=== PATIENT | male | born 1940 | race Caucasian/White ===

== ENCOUNTER 2017-02-04 05:17 | Emergency (ER) | payer MEDICARE, OTHER ==
[2017-02-04] MEDS ORDERED: Phenergan 25 MG INJ IV ONE (05:39)
[2017-02-04] MEDS ORDERED: Sodium Chloride 0.9% 1000 ML 1,000 ML IV SCH (05:45)
[2017-02-04] MEDS ORDERED: Phenergan 25 MG INJ ONE (05:46)
[2017-02-04] MEDS ORDERED: Sodium Chloride 0.9% 1000 ML 1,000 ML ONE (05:46)
--- NOTE | 2017-02-04 05:48 | ERPHSYRPT ---
- History of Present Illness Time Seen by Provider: 02/04/17 05:30 Source: patient Exam Limitations: no limitations Patient Subjective Stated Complaint: patirnt states at 0430 this morning he was lying in bed and began feeling dizzy. pt states he also became nauseated with the dizziness. denies any chest pain or headache. Triage Nursing Assessment: pt pink, warm, dry. pt able to transfer from wheelchair to Er cot without difficulty. pupils perrl. Physician History: ABOUT 90 MINUTES AGO PT GOT UP TO GO TO THE BATHROOM AND BECAME DIZZY(SPINNING) WITH NAUSEA. PT ALSO C/O RIGHT SIDED THROAT PAIN YESTERDAY ONLY. CHEST PAIN, SHORTNESS OF AIR, VOMITING, ABDOMINAL PAIN, FEVER ALL DENIED. Allergies/Adverse Reactions: No Known Drug Allergies Allergy (Verified 06/10/16 22:49) Home Medications: Aspirin EC 81 mg [Ecotrin 81 mg] 81 mg PO DAILY 06/27/13 [History] Sacubitril/Valsartan [Entresto 24 mg-26 mg Tablet] 24 - 26 tab PO BID 06/11/16 [ History] Amiodarone HCl 200 mg PO DAILY 02/04/17 [History] Atorvastatin Calcium 80 mg PO 02/04/17 [History] Carvedilol 12.5 mg [Coreg 12.5 mg] 12.5 mg PO BID 02/04/17 [History] Clopidogrel Bisulfate 75 mg [PLAVIX 75 MG Tablet] 75 mg PO DAILY 02/04/17 [History] Furosemide 20 mg [Lasix 20 mg] 20 mg PO BIDPRN PRN 02/04/17 [History] Spironolactone 25 mg PO DAILY 02/04/17 [History] Hx Tetanus, Diphtheria Vaccination/Date Given: Yes (up to date) Hx Influenza Vaccination/Date Given: No Hx Pneumococcal Vaccination/Date Given: No Immunizations Up to Date: Yes - Review of Systems Constitutional: No Fever Ears, Nose, & Throat: Throat Pain Respiratory: No Dyspnea Cardiac: No Chest Pain Abdominal/Gastrointestinal: Nausea, No Abdominal Pain, No Vomiting Neurological: Dizziness, Vertigo, No Headache All Other Systems: Reviewed and Negative - Past Medical History Pertinent Past Medical History: Yes Neurological History: No Pertinent History ENT History: No Pertinent History Cardiac History: Coronary Artery Disease, Hypertension Respiratory History: No Pertinent History Endocrine Medical History: No Pertinent History Musculoskeletal History: No Pertinent History GI Medical History: No Pertinent History History: No Pertinent History Psycho-Social History: No Pertinent History Male Reproductive Disorders: No Pertinent History - Past Surgical History Past Surgical History: No Neuro Surgical History: No Pertinent History Cardiac: Cardiac Catheterization, Cardiac Stent Respiratory: No Pertinent History Gastrointestinal: No Pertinent History Genitourinary: No Pertinent History Musculoskeletal: No Pertinent History Male Surgical History: No Pertinent History Other Surgical History: stents times 4 - Social History Smoking Status: Never smoker Exposure to second hand smoke: No Drug Use: none Patient Lives Alone: No - Nursing Vital Signs Nursing Vital Signs: Initial Vital Signs Temperature 97.5 F 02/04/17 05:23 Pulse Rate 55 L 02/04/17 05:23 Respiratory Rate 18 02/04/17 05:23 Blood Pressure 124/79 02/04/17 05:23 O2 Sat by Pulse Oximetry 94 L 02/04/17 05:23 Pain Scale Pain Intensity 0 - Physical Exam General Appearance: alert Eye Exam: PERRL/EOMI, eyes nml inspection Ears, Nose, Throat Exam: TMs normal, pharynx normal, moist mucous membranes Neck Exam: normal inspection, full range of motion, No carotid bruit Respiratory Exam: normal breath sounds, lungs clear Cardiovascular Exam: normal heart sounds Gastrointestinal/Abdomen Exam: soft, normal bowel sounds Back Exam: normal range of motion Extremity Exam: normal inspection, normal range of motion, No pedal edema Neurologic Exam: alert, cooperative, sensation nml, No motor deficits Skin Exam: warm, dry SpO2 Interpretation: normal SpO2: 94 Oxygen Delivery: Room Air - Course Nursing assessment & vital signs reviewed: Yes EKG Interpreted by Me: RATE (54), Sinus Donato, NORMAL AXIS, NORMAL INTERVALS - Radiology Exams Chest X-ray Interpretation: Interpreted by me, No Pneumonia - CT Exams Head CT Interpretation: Tele-radiologist Report (NO EVIDENCE OF ACUTE INTRACRANIAL ABNORMALITY. NO EVIDENCE OF ACUTE INFARCTION, HEMORRHAGE OR MASS. ATROPHY AND MILD MICROVASCULAR DISEASE.) Ordered Tests: Active Orders 24 hr Category Date Time Status Machinery Engineer STAT Care 02/04/17 05:39 Active Clean Catch Urine Specimen STAT Care 02/04/17 05:39 Active EKG-ER Only STAT Care 02/04/17 05:39 Active IV Insertion STAT Care 02/04/17 05:39 Active CHEST 1 VIEW (PORTABLE) Stat Exams 02/04/17 05:39 Taken HEAD WITHOUT CONTRAST [CT] Stat Exams 02/04/17 05:40 Taken AMYLASE Stat Lab 02/04/17 06:00 Completed CBC W DIFF Stat Lab 02/04/17 06:00 Completed CMP Stat Lab 02/04/17 06:00 Completed LIPASE Stat Lab 02/04/17 06:00 Completed MAGNESIUM Stat Lab 02/04/17 06:00 Completed TROPONIN Q3H Lab 02/04/17 06:00 Completed TROPONIN Q3H Lab 02/04/17 08:45 Ordered TROPONIN Q3H Lab 02/04/17 11:45 Ordered TROPONIN Q3H Lab 02/04/17 14:45 Ordered TROPONIN Q3H Lab 02/04/17 17:45 Ordered UA W/RFX UR CULTURE Stat Lab 02/04/17 05:39 Ordered Medication Summary Generic Name Dose Route Start Last Admin Trade Name Freq PRN Reason Stop Dose Admin Sodium Chloride 1,000 mls @ 100 mls/hr 02/04/17 05:45 02/04/17 05:48 Sodium Chloride 0.9% 1000 Ml IV 03/06/17 05:44 100 mls/hr .Q10H LEMUEL Administration Magnesium Oxide 400 mg 02/04/17 07:00 Mag-Ox 400 PO 03/06/17 06:59 BID LEMUEL Discontinued Medications Generic Name Dose Route Start Last Admin Trade Name Freq PRN Reason Stop Dose Admin Promethazine HCl 12.5 mg 02/04/17 05:39 02/04/17 05:48 Phenergan 25 Mg Inj IV 02/04/17 05:40 12.5 mg STAT ONE Administration Promethazine HCl Confirm 02/04/17 05:46 Phenergan 25 Mg Inj Administered 02/04/17 05:47 Dose 25 mg .ROUTE .STK-MED ONE Lab/Rad Data: Laboratory Result Diagrams 02/04/17 06:00 02/04/17 06:00 Laboratory Results 02/04/17 02/04/17 02/04/17 Range/Units 06:00 06:00 06:00 WBC 5.8 (4.0-10.5) K/mm3 RBC 4.54 (4.1-5.6) M/mm3 Hgb 13.8 (12.5-18.0) gm/dl Hct 42.0 (42-50) % MCV 92.5 (78-100) fl MCH 30.4 (26-32) pg MCHC 32.9 (32-36) g/dl RDW 13.5 (11.5-14.0) % Plt Count 198 (150-450) K/mm3 MPV 10.0 H (6-9.5) fl Gran % 59.5 (36.0-66.0) % Lymphocytes % 26.0 (24.0-44.0) % Monocytes % 11.3 (0.0-12.0) % Eosinophils % 2.9 (0.00-5.0) % Basophils % 0.3 (0.0-0.4) % Basophils # 0.02 (0-0.4) Sodium 138 (136-145) mEq/L Potassium 3.7 (3.5-5.1) mEq/L Chloride 102 (98-107) mEq/L Carbon Dioxide 24.6 (21-32) mEq/L Anion Gap 15.5 H (5-15) MEQ/L BUN 14 (9-20) mg/dL Creatinine 0.92 (0.55-1.30) mg/dl Estimated GFR > 60 ML/MIN Glucose 126 H (70-110) MG/DL Calcium 9.0 (8.5-10.1) mg/dL Magnesium 1.6 L (1.8-2.4) mg/dL Total Bilirubin 0.60 (0.2-1.0) mg/dL AST 12 L (15-37) U/L ALT 21 (12-78) U/L Alkaline Phosphatase 58 (46-116) U/L Troponin I < 0.017 (0.000-0.056) ng/ml Serum Total Protein 6.7 (6.4-8.2) gm/dL Albumin 3.6 (3.4-5.0) g/dL Amylase 32 (25-115) U/L Lipase 80 (73-393) U/L - Departure Time of Disposition: 06:53 Departure Disposition: Home Clinical Impression: DIZZINESS Condition: Stable Critical Care Time: No Referrals: ALEX CORTEZ [Primary Care Provider] - Instructions: Vertigo Additional Instructions: FOLLOW UP WITH PRIVATE DOCTOR TOMORROW. Prescriptions: Meclizine HCl 25 mg [Antivert 25 mg] 25 mg PO Q8H PRN PRN #30 tablet PRN Reason: Dizziness
[2017-02-04 06:19] LABS: BASOPHIL % 0.3 % (0.0-0.4); Eosinophil % 2.9 % (0.00-5.0); Granulocytes % 59.5 % (36.0-66.0); Mean Cell Volume 92.5 fl (78-100); Mean Corpuscular Hemoglobin 30.4 pg (26-32); Monocytes % 11.3 % (0.0-12.0); Platelet Count 198 K/mm3 (150-450); Red Blood Count 4.54 M/mm3 (4.1-5.6); Red Cell Distribution Width 13.5 % (11.5-14.0); White Blood Count 5.8 K/mm3 (4.0-10.5)
[2017-02-04 06:25] LABS: ALBUMIN 3.6 g/dL (3.4-5.0); ALKALINE PHOSPHATASE 58 U/L (46-116); ANION GAP 15.5 MEQ/L (5-15); BLOOD UREA NITROGEN 14 mg/dL (9-20); CHLORIDE 102 mEq/L (98-107); Carbon Dioxide 24.6 mEq/L (21-32); Glucose 126 MG/DL (70-110); LIPASE 80 U/L (73-393); MAGNESIUM 1.6 mg/dL (1.8-2.4); Potassium 3.7 mEq/L (3.5-5.1); SGOT/AST 12 U/L (15-37); SGPT/ALT 21 U/L (12-78); SODIUM 138 mEq/L (136-145); Total Protein 6.7 gm/dL (6.4-8.2)
[2017-02-04 06:54] VITALS: O2SAT 94
[2017-02-04] MEDS ORDERED: MAG-OX 400 PO SCH (07:00)
[2017-02-04] MEDS ORDERED: MAG-OX 400 ONE (07:08)
[2017-02-04 07:53] VITALS: BP 128/64; PULSE 84
--- NOTE | 2017-02-04 16:12 | XRAY ---
Exam: CT of the head without IV contrast fromd 02/04/2017. Comparison: None. Indication: Dizziness, nausea. Technique: Non-IV contrast axial images were obtained through the brain. Reconstructed coronal and sagittal images were created and reviewed. Findings: The lateral and third ventricles as well as the cortical sulci and sylvian fissures are mildly prominent suggesting some mild cerebral volume loss/atrophy. The patient's head is tilted in the CT gantry. I see no evidence of acute intracranial bleed or abnormal extra-axial fluid collection. No focal mass effect or definite midline shift is seen. There is some mild subtle peripheral subcortical white matter changes, likely due to chronic microvascular disease. No evidence of acute territorial infarction is seen. The calvarium of the skull appears intact. Scant scattered mucosal thickening is seen within the maxillary sinuses, ethmoid sinuses, right side of the sphenoid sinus, and inferior portion of the frontal sinuses. No paranasal sinus air-fluid levels are seen. The mastoid air cells appear unremarkable. Impression: 1. No acute intracranial bleed, evidence of acute territorial infarction, gross mass, or other acute intracranial abnormality is seen. 2. Mild generalized atrophy and chronic small vessel ischemic disease.
--- NOTE | 2017-02-04 16:16 | XRAY ---
Exam: AP portable chest film from 0555 hours on 02/04/2017. Comparison: AP portable chest film from 06/10/2016. Indication: Dizziness, nausea, prior stents 3 years ago. Findings: The film was obtained in a mildly lordotic projection. Visualization of the left lung base is less than optimal, probably due to the patient's position. The transverse heart size appears within normal limits. No central vascular congestion is seen. The lungs appear grossly clear. No pneumothorax or pleural fluid is seen. No acute osseous process is seen. EKG leads are seen in place. Impression: 1. Mildly lordotic portable chest radiograph revealing no acute cardiopulmonary disease. The findings are unchanged from 06/10/2016.
== END 2017-02-04 07:52 | disposition home or self-care (01) ==
LOC: ED 05:17
DX: R42 Dizziness and giddiness (principal); R11.0 Nausea; I10 Essential (primary) hypertension; I25.10 Atherosclerotic heart disease of native coronary artery without angina pectoris
CPT/HCPCS: 36000; 36415; 70450; 71010; 80053; 82150; 83690; 83735; 84484; 85025; 93005; 93041; 96360; 96374; 99284; J2550; A9270-GY

== ENCOUNTER 2020-03-24 08:18 | Inpatient (IN) | payer MEDICARE, OTHER ==
[2020-03-24] MEDS ORDERED: Zofran 4 MG/2 ML VIAL IV ONE (08:47)
[2020-03-24] MEDS ORDERED: SUBLIMAZE 100 MCG/2 ML IV ONE (08:47)
[2020-03-24 08:57] LABS: Absolute Neutrophil Ct (ANC) 10.51 (1.4-6.9); BASOPHIL % 0.2 % (0.0-0.4); Basophil (Absolute #) 0.02 (0-0.4); Eosinophil % 0.8 % (0.00-5.0); Eosinophil (Absolute #) 0.11 (0-0.5); Hematocrit 45.9 % (42-50); Hemoglobin 15.3 gm/dl (12.5-18.0); Lymphocytes % 12.2 % (24.0-44.0); Mean Cell Volume 93.3 fl (78-100); Mean Corpuscular Hemoglobin 31.1 pg (26-32); Mean Corpuscular Hgb Concent. 33.3 g/dl (32-36); Mean Platelet Volume 9.4 fl (7.5-11.0); Monocyte (Absolute #) 0.86 (0.0-1.3); Monocytes % 6.6 % (0.0-12.0); Neutrophil % 80.2 % (36.0-66.0); Platelet Count 241 K/mm3 (150-450); Red Blood Count 4.92 M/mm3 (4.1-5.6); Red Cell Distribution Width 13.3 % (11.5-14.0); White Blood Count 13.1 K/mm3 (4.0-10.5)
[2020-03-24] MEDS ORDERED: SUBLIMAZE 100 MCG/2 ML ONE (08:57)
[2020-03-24] MEDS ORDERED: Zofran 4 MG/2 ML VIAL ONE (08:57)
--- NOTE | 2020-03-24 09:08 | ERPHSYRPT ---
- History of Present Illness Historian: patient Exam Limitations: no limitations Patient Subjective Stated Complaint: Pt stated that around 1900 last night he began having abdominal pain going straight down in a medial line Triage Nursing Assessment: Pt brought to the ER by his , vitals wnl, pain with palpatation to the upper, middle, and lower medial abdomen, pulses normal, normal heart sounds heard, rates pain 8/10, skin n/w/d, denies any issues in past like this Physician History: 79 yo wm w generalized avbdominal pain x 13 hours. Pain is 5/10 but has been 9/10 at max. It is sharp and nothing makes it better or worse. Pain does occ radiate to back. He denies N/V/D/melena/hematochezia/dysuria/hematuria/fever/chest pain. Timing/Duration: other (13hrs) Activities at Onset: rest Quality: sharpness Abdominal Pain Onset Location: generalized abdomen Pain Radiation: back Severity of Pain-Max: severe Severity of Pain-Current: severe Modifying Factors: Improves With: nothing Associated Symptoms: back, No chest pain, No diaphoresis, No diarrhea, No fever/chills, No fatigue, No headache, No heartburn, No loss of appetite, No nausea, No neck pain, No rash, No shortness of breath, No syncope, No testicular pain, No vomiting, No weakness Previous symptoms: no prior history Allergies/Adverse Reactions: No Known Drug Allergies Allergy (Verified 03/24/20 08:36) Home Medications: Aspirin EC 81 mg [Ecotrin 81 mg] 81 mg PO DAILY 06/27/13 [History] Sacubitril/Valsartan [Entresto 24 mg-26 mg Tablet] 24 - 26 tab PO BID 06/11/16 [History] Amiodarone HCl 200 mg PO DAILY 02/04/17 [History] Atorvastatin Calcium 80 mg PO DAILY 02/04/17 [History] Carvedilol 12.5 mg [Coreg 12.5 mg] 12.5 mg PO BID 02/04/17 [History] Clopidogrel Bisulfate 75 mg [PLAVIX 75 MG Tablet] 75 mg PO DAILY 02/04/17 [History] Furosemide 20 mg [Lasix 20 mg] 20 mg PO BIDPRN PRN 02/04/17 [History] Spironolactone 25 mg PO DAILY 02/04/17 [History] Hx Tetanus, Diphtheria Vaccination/Date Given: Yes (up to date) Hx Influenza Vaccination/Date Given: No Hx Pneumococcal Vaccination/Date Given: No Travel Risk - International Travel Have you traveled outside of the country in past 3 weeks: No - Coronavirus Screening Are you exhibiting any of the following symptoms?: No Close contact with a COVID-19 positive Pt in past 14-21 Days: No - Review of Systems Constitutional: No Symptoms Eyes: No Symptoms Ears, Nose, & Throat: No Symptoms Respiratory: No Symptoms Cardiac: No Symptoms Abdominal/Gastrointestinal: Abdominal Pain, No Nausea, No Vomiting, No Diarrhea, No Constipation, No Hematemesis, No Hematochezia, No Melena, No Dysphagia, No Appetite Changes Genitourinary Symptoms: No Symptoms Musculoskeletal: No Symptoms Skin: No Symptoms Neurological: No Symptoms Hematologic/Lymphatic: Easy Bruising - Past Medical History Pertinent Past Medical History: Yes Neurological History: No Pertinent History ENT History: No Pertinent History Cardiac History: Coronary Artery Disease, Hypertension Respiratory History: No Pertinent History Endocrine Medical History: No Pertinent History Musculoskeletal History: No Pertinent History GI Medical History: No Pertinent History History: No Pertinent History Psycho-Social History: No Pertinent History Male Reproductive Disorders: No Pertinent History - Past Surgical History Past Surgical History: No Neuro Surgical History: No Pertinent History Cardiac: Cardiac Catheterization, Cardiac Stent Respiratory: No Pertinent History Gastrointestinal: No Pertinent History Genitourinary: No Pertinent History Musculoskeletal: No Pertinent History Male Surgical History: No Pertinent History Other Surgical History: stents times 4 - Social History Smoking Status: Never smoker Exposure to second hand smoke: No Drug Use: none Patient Lives Alone: No - Nursing Vital Signs Nursing Vital Signs: Initial Vital Signs Temperature 97.3 F 03/24/20 08:25 Pulse Rate 70 03/24/20 08:25 Blood Pressure 138/86 03/24/20 08:25 O2 Sat by Pulse Oximetry 98 03/24/20 08:25 Pain Scale Pain Intensity 6 - Physical Exam General Appearance: no apparent distress (In pain) Eye Exam: PERRL/EOMI, eyes nml inspection Ears, Nose, Throat Exam: normal ENT inspection, TMs normal, pharynx normal, moist mucous membranes Neck Exam: normal inspection, non-tender, supple, full range of motion, No meningismus, No mass, No Brudzinski, No Kernig's Respiratory Exam: normal breath sounds, lungs clear, airway intact, No r espiratory distress Cardiovascular Exam: regular rate/rhythm, normal heart sounds, No murmur Gastrointestinal/Abdomen Exam: soft, tenderness (Diffuse TTP), distention Back Exam: normal inspection Extremity Exam: normal inspection, normal range of motion Neurologic Exam: alert, oriented x 3, cooperative, breakfast bar attendant II-XII nml as tested, normal mood/affect, sensation nml, No motor deficits, No sensory deficit Skin Exam: normal color, warm, dry Lymphatic Exam: No adenopathy SpO2 Interpretation: normal SpO2: 98 O2 Delivery: Room Air - Course Nursing assessment & vital signs reviewed: Yes EKG Interpreted by Me: RATE (NSR/PVC's/Prolonged QTc/Flat T-waves) - CT Exams Abdomen/Pelvis CT Interpretation: Discussed w/radiologist (Pancreatitis involving head of pancreas) Ordered Tests: Active Orders 24 hr Category Date Time Status EKG-ER Only STAT Care 03/24/20 08:46 Active IV Insertion STAT Care 03/24/20 08:46 Active ABDOMEN AND PELVIS W CONTRAST [CT] Stat Exams 03/24/20 10:22 Completed AMYLASE Stat Lab 03/24/20 08:56 Completed CBC W DIFF Stat Lab 03/24/20 08:56 Completed CMP Stat Lab 03/24/20 08:56 Completed LIPASE Stat Lab 03/24/20 08:56 Completed TROPONIN Q3H Lab 03/24/20 08:56 Completed TROPONIN Q3H Lab 03/24/20 12:16 Received TROPONIN Q3H Lab 03/24/20 15:00 Ordered TROPONIN Q3H Lab 03/24/20 18:00 Ordered TROPONIN Q3H Lab 03/24/20 21:00 Ordered UA W/RFX UR CULTURE Stat Lab 03/24/20 12:16 Ordered Medication Summary Discontinued Medications Generic Name Dose Route Start Last Admin Trade Name Freq PRN Reason Stop Dose Admin Fentanyl Citrate 50 mcg 03/24/20 08:47 03/24/20 09:00 Sublimaze 100 Mcg/2 Ml IV 03/24/20 08:48 50 mcg STAT ONE Administration Fentanyl Citrate Confirm 03/24/20 08:57 Sublimaze 100 Mcg/2 Ml Administered 03/24/20 08:58 Dose 100 mcg .ROUTE .STK-MED ONE Hydromorphone HCl 1 mg 03/24/20 10:25 03/24/20 10:28 Hydromorphone 1 Mg/Ml Injection IV 03/24/20 10:26 1 mg STAT ONE Administration Hydromorphone HCl Confirm 03/24/20 10:27 Hydromorphone 1 Mg/Ml Injection Administered 03/24/20 10:28 Dose 1 mg .ROUTE .STK-MED ONE Sodium Chloride 1,000 mls @ 999 mls/hr 03/24/20 10:00 03/24/20 12:03 Sodium Chloride 0.9% 1000 Ml IV 03/24/20 11:00 Infused .Q1H1M STA Infusion Sodium Chloride Confirm 03/24/20 10:08 Sodium Chloride 0.9% 1000 Ml Administered 03/24/20 10:09 Dose 1,000 mls @ ud .ROUTE .STK-MED ONE Ondansetron HCl 4 mg 03/24/20 08:47 03/24/20 08:59 Zofran 4 Mg/2 Ml Vial IV 03/24/20 08:48 4 mg STAT ONE Administration Ondansetron HCl Confirm 03/24/20 08:57 Zofran 4 Mg/2 Ml Vial Administered 03/24/20 08:58 Dose 4 mg .ROUTE .STK-MED ONE Lab/Rad Data: Laboratory Result Diagrams 03/24/20 08:56 03/24/20 08:56 Laboratory Results 03/24/20 03/24/20 03/24/20 Range/Units 08:56 08:56 08:56 WBC 13.1 H (4.0-10.5) K/mm3 RBC 4.92 (4.1-5.6) M/mm3 Hgb 15.3 (12.5-18.0) gm/dl Hct 45.9 (42-50) % MCV 93.3 (78-100) fl MCH 31.1 (26-32) pg MCHC 33.3 (32-36) g/dl RDW 13.3 (11.5-14.0) % Plt Count 241 (150-450) K/mm3 MPV 9.4 (7.5-11.0) fl Gran % 80.2 H (36.0-66.0) % Eos # (Auto) 0.11 (0-0.5) Absolute Lymphs (auto) 1.60 (1.0-4.6) Absolute Monos (auto) 0.86 (0.0-1.3) Lymphocytes % 12.2 L (24.0-44.0) % Monocytes % 6.6 (0.0-12.0) % Eosinophils % 0.8 (0.00-5.0) % Basophils % 0.2 (0.0-0.4) % Absolute Granulocytes 10.51 H (1.4-6.9) Basophils # 0.02 (0-0.4) Sodium 133 L (137-145) mmol/L Potassium 4.4 (3.5-5.1) mmol/L Chloride 100 (98-107) mmol/L Carbon Dioxide 26 (22-30) mmol/L Anion Gap 11.8 (5-15) MEQ/L BUN 15 (9-20) mg/dL Creatinine 0.65 L (0.66-1.25) mg/dL Estimated GFR > 60.0 ML/MIN Glucose 102 (74-106) mg/dL Calcium 9.2 (8.4-10.2) mg/dL Total Bilirubin 1.00 (0.2-1.3) mg/dL AST 18 (17-59) U/L ALT 17 (0-50) U/L Alkaline Phosphatase 71 (38-126) U/L Troponin I < 0.012 (0.000-0.034) ng/mL Serum Total Protein 6.6 (6.3-8.2) g/dL Albumin 4.0 (3.5-5.0) g/dL Amylase 1630 H (30-110) U/L Lipase 94218 H (23-300) U/L - Progress Progress: improved Progress Note: 03/24/20 10:26 Pain improved w 50mcg IV Fentanyl but started to return, so 1mg IV Dilaudid given 03/24/20 12:24 Pain improved w 1mg IV Dilaudid Admit per Dr. Smith Discussed with : Chris Will see patient in: hospital (observation) Counseled pt/family regarding: lab results, rad results - Departure Clinical Impression: Pancreatitis Condition: Stable Critical Care Time: No Referrals: VINCENT SMITH MD [Primary Care Provider] -
[2020-03-24 09:28] LABS: ALKALINE PHOSPHATASE 71 U/L (38-126); ANION GAP 11.8 MEQ/L (5-15); BLOOD UREA NITROGEN 15 mg/dL (9-20); CHLORIDE 100 mmol/L (98-107); Calcium 9.2 mg/dL (8.4-10.2); Carbon Dioxide 26 mmol/L (22-30); Creatinine 1 0.65 mg/dL (0.66-1.25); EST GLOMERULAR FILTRATION RATE > 60.0 ML/MIN; Glucose 102 mg/dL (74-106); Potassium 4.4 mmol/L (3.5-5.1); SGOT/AST 18 U/L (17-59); SGPT/ALT 17 U/L (0-50); SODIUM 133 mmol/L (137-145); Total Protein 6.6 g/dL (6.3-8.2)
[2020-03-24 09:37] LABS: AMYLASE 1630 U/L (30-110)
[2020-03-24] MEDS ORDERED: Sodium Chloride 0.9% 1000 ML 1,000 ML IV STA (10:00)
[2020-03-24 10:02] LABS: LIPASE 10079 U/L (23-300)
[2020-03-24] MEDS ORDERED: Sodium Chloride 0.9% 1000 ML 1,000 ML ONE ×2 (10:08→13:01)
[2020-03-24] MEDS ORDERED: Hydromorphone 1 mg/ml Injection IV ONE (10:25)
[2020-03-24] MEDS ORDERED: Hydromorphone 1 mg/ml Injection ONE (10:27)
--- NOTE | 2020-03-24 12:06 | XRAY ---
Indication: Midabdomen pain. Elevated pancreatic enzymes. Multiple contiguous axial images obtained through the abdomen and pelvis using 80 cc Isovue 370 contrast only. Comparison: None Lung bases demonstrates bibasilar atelectasis/scarring, tiny right posterior gutter calcified granuloma, and mild right hemidiaphragm elevation. Heart is not enlarged. The head of the pancreas demonstrates minimal peripancreatic stranding favoring pancreatitis. Small free fluid collects adjacently and along the right colic gutter. No walled off fluid collection or free air. Mild duodenal wall thickening presumed reactive. Gallbladder mildly distended without gallstones or biliary distention. Noncontrasted stomach and bowel loops appear nonobstructed. There is mild/moderate diffuse scattered colonic fecal debris throughout and minimal sigmoid diverticulosis. 1.8 cm right mid renal cyst and a few tiny splenic calcified granulomas. Remaining liver, gallbladder, pancreas, spleen, adrenal glands, kidneys, ureters, and bladder appear unremarkable. Moderate aortoiliac calcifications. No AAA or pathologic retroperitoneal lymphadenopathy. Osseous structures intact with mild degenerative changes throughout the thoracolumbar spine. Impression: 1. Pancreatitis involving the head of the pancreas with small free fluid and reactive duodenal wall thickening. 2. Diffuse fecal stasis and minimal sigmoid diverticulosis. 3. Incidental small right renal cyst, degenerative spondylosis, mild right hemidiaphragm elevation, and old granulomatous disease.
[2020-03-24 12:23] LABS: Appearance CLEAR (CLEAR); Bilirubin NEGATIVE (NEGATIVE); Blood NEGATIVE Ery/ul (0-5); Glucose NEGATIVE (NEGATIVE); Ketones NEGATIVE (NEGATIVE); Leukocyte Esterase NEGATIVE (NEGATIVE); Mucus SLIGHT /HPF (NEGATIVE); Nitrite NEGATIVE (NEGATIVE); Protein,Urine Dip NEGATIVE (Negative); Specific Gravity 1.033 (1.005-1.025); Urobilinogen NEGATIVE mg/dL (0-1)
[2020-03-24] MEDS ORDERED: Zofran 4 MG/2 ML VIAL IV PRN (12:27)
[2020-03-24] MEDS ORDERED: Sodium Chloride 0.9% W/ 20 mEq KCl/LITER 1,000 ML IV SCH (12:30)
[2020-03-24] MEDS ORDERED: Sodium Chloride 0.9% 1000 ML 1,000 ML IV SCH (13:00)
--- NOTE | 2020-03-24 13:25 | XRAY ---
Indication: Pancreatitis. Two-dimensional right upper quadrant abdominal sonogram performed. Comparison: None Sonogram limited due to excessive overlying bowel gas. Pancreas not well visualized. Remaining visualized portions of the liver appears homogeneous in echogenicity without hepatomegaly or ascites. Gallbladder normally distended without gallstones, wall thickening, or pericholecystic fluid. Common bile duct measures 5 mm. Right kidney measures 12.1 cm in length with a 1.6 cm midpole exophytic cyst. Impression: 1. Limited sonogram due to overlying bowel gas. Pancreas not visualized. 2. Incidental right renal cyst. 3. Remaining right upper quadrant sonogram is negative.
[2020-03-24] MEDS: Hydromorphone 1 mg/ml Injection IV PRN ×2 (14:31→19:43)
[2020-03-24] MEDS ORDERED: ECOTRIN 81 MG PO SCH (15:00)
[2020-03-24] MEDS: Aldactone 25 MG PO SCH (15:55)
[2020-03-24] MEDS: ECOTRIN 81 MG PO SCH (15:55)
[2020-03-24] MEDS: Cordarone 200 MG PO SCH (15:55)
[2020-03-24] MEDS: PLAVIX 75 MG Tablet PO SCH (15:55)
--- NOTE | 2020-03-24 16:07 | PCM.HP ---
History of Present Illness - Chief Complaint Chief Complaint: Pancreatitis History of Present Illness: is a 79 year old male who developed an acute onset of epigastric pain radiating to the back yesterday afternoon, he was unable to sleep well last night and pain worsened until he came in this morning. No nausea, vomiting, diarrhea or constipation. no cough, no fever, no shortness of breath. denies alcohol use, no new meds. - Review of Systems Constitutional: No Fever, No Chills Respiratory: No Cough, No Short Of Breath Cardiac: No Chest Pain, No Edema, No Syncope Abdominal/Gastrointestinal: Abdominal Pain, No Nausea, No Vomiting, No Diarrhea, No Constipation Skin: No Rash All Other Systems: Reviewed and Negative Medications & Allergies Home Medications: Home Medication List Aspirin EC 81 mg [Ecotrin 81 mg] 81 mg PO UD 06/27/13 [History Confirmed 03/24/20] Sacubitril/Valsartan [Entresto 24 mg-26 mg Tablet] 24 - 26 tab PO BID 06/11/16 [History Confirmed 03/24/20] Amiodarone HCl 200 mg PO DAILY 02/04/17 [History Confirmed 03/24/20] Atorvastatin Calcium 80 mg PO HS 02/04/17 [History Confirmed 03/24/20] Carvedilol 12.5 mg [Coreg 12.5 mg] 12.5 mg PO BID 02/04/17 [History Confirmed 03/24/20] Clopidogrel Bisulfate 75 mg [PLAVIX 75 MG Tablet] 75 mg PO DAILY 02/04/17 [History Confirmed 03/24/20] Furosemide 20 mg [Lasix 20 mg] 20 mg PO BIDPRN PRN 02/04/17 [History Confirmed 03/24/20] Spironolactone 25 mg PO DAILY 02/04/17 [History Confirmed 03/24/20] Ascorbic Acid 500 mg [Vitamin C 500 MG] 500 mg PO DAILY 03/24/20 [History Confirmed 03/24/20] Allergies/Adverse Reactions: Allergies Allergy/AdvReac Type Severity Reaction Status Date / Time No Known Drug Allergies Allergy Verified 03/24/20 08:36 - Past Medical History Past Medical History: Yes Neurological History: No Pertinent History ENT History: Cataracts Cardiac History: Arrhythmia, Coronary Artery Disease, High Cholesterol, Hypertension, Myocardial Infarction ([place]) Respiratory History: COPD Endocrine Medical History: No Pertinent History Musculoskelatal History: No Pertinent History GI Medical History: Pancreatitis History: No Pertinent History Pyscho-Social History: No Pertinent History Male Reproductive Disorders: No Pertinent History Comment: AFIB - Past Surgical History Past Surgical History: No Neuro Surgical History: No Pertinent History Cardiac History: Cardiac Catheterization, Cardiac Stent Respiratory Surgery: No Pertinent History GI Surgical History: No Pertinent History Genitourinary Surgical Hx: No Pertinent History Musculskeletal Surgical Hx: No Pertinent History Male Surgical History: No Pertinent History Other Surgical History: stents times 4 - Social History Smoking Status: Never smoker Exposure to second hand smoke: No Alcohol: Rarely Drug Use: none - Physical Exam Vital Signs: Vital Signs - 24 hr Temp Pulse Resp BP Pulse Ox 03/24/20 15:54 97.5 F 68 18 113/61 94 L 03/24/20 14:00 97.5 F 70 18 138/72 96 03/24/20 12:25 98 03/24/20 10:17 96 H 16 128/72 97 03/24/20 08:25 97.3 F 70 138/86 98 General Appearance: no apparent distress Neurologic Exam: alert, oriented x 3, cooperative Respiratory Exam: normal breath sounds, lungs clear, No respiratory distress Gastrointestinal/Abdomen Exam: tenderness (epigastrium, mild), No guarding, No rebound Extremity Exam: normal inspection, normal range of motion, pelvis stable Skin Exam: normal color, warm, dry, No rash Results - Labs Lab/Micro Results: Lab Results-Last 24 Hours 03/24/20 03/24/20 03/24/20 Range/Units 08:56 08:56 08:56 WBC 13.1 H (4.0-10.5) K/mm3 RBC 4.92 (4.1-5.6) M/mm3 Hgb 15.3 (12.5-18.0) gm/dl Hct 45.9 (42-50) % MCV 93.3 (78-100) fl MCH 31.1 (26-32) pg MCHC 33.3 (32-36) g/dl RDW 13.3 (11.5-14.0) % Plt Count 241 (150-450) K/mm3 MPV 9.4 (7.5-11.0) fl Gran % 80.2 H (36.0-66.0) % Eos # (Auto) 0.11 (0-0.5) Absolute Lymphs (auto) 1.60 (1.0-4.6) Absolute Monos (auto) 0.86 (0.0-1.3) Lymphocytes % 12.2 L (24.0-44.0) % Monocytes % 6.6 (0.0-12.0) % Eosinophils % 0.8 (0.00-5.0) % Basophils % 0.2 (0.0-0.4) % Absolute Granulocytes 10.51 H (1.4-6.9) Basophils # 0.02 (0-0.4) Sodium 133 L (137-145) mmol/L Potassium 4.4 (3.5-5.1) mmol/L Chloride 100 (98-107) mmol/L Carbon Dioxide 26 (22-30) mmol/L Anion Gap 11.8 (5-15) MEQ/L BUN 15 (9-20) mg/dL Creatinine 0.65 L (0.66-1.25) mg/dL Estimated GFR > 60.0 ML/MIN Glucose 102 (74-106) mg/dL Calcium 9.2 (8.4-10.2) mg/dL Total Bilirubin 1.00 (0.2-1.3) mg/dL AST 18 (17-59) U/L ALT 17 (0-50) U/L Alkaline Phosphatase 71 (38-126) U/L Troponin I < 0.012 (0.000-0.034) ng/mL Serum Total Protein 6.6 (6.3-8.2) g/dL Albumin 4.0 (3.5-5.0) g/dL Amylase 1630 H (30-110) U/L Lipase 48158 H (23-300) U/L Urine Color (YELLOW) Urine Appearance (CLEAR) Urine pH (5-6) Ur Specific [place] (1.005-1.025) Urine Protein (Negative) Urine Ketones (NEGATIVE) Urine Blood (0-5) Monty/ul Urine Nitrite (NEGATIVE) Urine Bilirubin (NEGATIVE) Urine Urobilinogen (0-1) mg/dL Ur Leukocyte Esterase (NEGATIVE) Urine WBC (Auto) (0-5) /HPF Urine RBC (Auto) (0-2) /HPF U Epithel Cells (Auto) (FEW) /HPF Urine Bacteria (Auto) (NEGATIVE) /HPF Urine Mucus (Auto) (NEGATIVE) /HPF Urine Culture Reflexed (NO) Urine Glucose (NEGATIVE) mg/dL 03/24/20 03/24/20 Range/Units 12:16 12:16 WBC (4.0-10.5) K/mm3 RBC (4.1-5.6) M/mm3 Hgb (12.5-18.0) gm/dl Hct (42-50) % MCV (78-100) fl MCH (26-32) pg MCHC (32-36) g/dl RDW (11.5-14.0) % Plt Count (150-450) K/mm3 MPV (7.5-11.0) fl Gran % (36.0-66.0) % Eos # (Auto) (0-0.5) Absolute Lymphs (auto) (1.0-4.6) Absolute Monos (auto) (0.0-1.3) Lymphocytes % (24.0-44.0) % Monocytes % (0.0-12.0) % Eosinophils % (0.00-5.0) % Basophils % (0.0-0.4) % Absolute Granulocytes (1.4-6.9) Basophils # (0-0.4) Sodium (137-145) mmol/L Potassium (3.5-5.1) mmol/L Chloride (98-107) mmol/L Carbon Dioxide (22-30) mmol/L Anion Gap (5-15) MEQ/L BUN (9-20) mg/dL Creatinine (0.66-1.25) mg/dL Estimated GFR ML/MIN Glucose (74-106) mg/dL Calcium (8.4-10.2) mg/dL Total Bilirubin (0.2-1.3) mg/dL AST (17-59) U/L ALT (0-50) U/L Alkaline Phosphatase (38-126) U/L Troponin I < 0.012 (0.000-0.034) ng/mL Serum Total Protein (6.3-8.2) g/dL Albumin (3.5-5.0) g/dL Amylase (30-110) U/L Lipase (23-300) U/L Urine Color YELLOW (YELLOW) Urine Appearance CLEAR (CLEAR) Urine pH 6.0 (5-6) Ur Specific [place] 1.033 (1.005-1.025) Urine Protein NEGATIVE (Negative) Urine Ketones NEGATIVE (NEGATIVE) Urine Blood NEGATIVE (0-5) Monty/ul Urine Nitrite NEGATIVE (NEGATIVE) Urine Bilirubin NEGATIVE (NEGATIVE) Urine Urobilinogen NEGATIVE (0-1) mg/dL Ur Leukocyte Esterase NEGATIVE (NEGATIVE) Urine WBC (Auto) NONE (0-5) /HPF Urine RBC (Auto) NONE (0-2) /HPF U Epithel Cells (Auto) NONE (FEW) /HPF Urine Bacteria (Auto) NONE (NEGATIVE) /HPF Urine Mucus (Auto) SLIGHT (NEGATIVE) /HPF Urine Culture Reflexed NO (NO) Urine Glucose NEGATIVE (NEGATIVE) mg/dL - Radiology Impressions Radiology Exams & Impressions: Radiology Procedures Category Date Time Status ABDOMEN AND PELVIS W CONTRAST [CT] Stat Exams 03/24/20 10:22 Completed US ABDOMEN LIMITED [ABDOMINAL-LIMITED] [US] Stat Exams 03/24/20 13:11 Completed Assessment/Plan (1) Acute pancreatitis Current Visit: Yes Status: Acute Assessment & Plan: IV fluids, NPO other than water/ice chips. repeat labs in am Code(s): K85.90 - ACUTE PANCREATITIS WITHOUT NECROSIS OR INFECTION, UNSP (2) CHF (congestive heart failure) Current Visit: Yes Status: Acute Code(s): I50.9 - HEART FAILURE, UNSPECIFIED
[2020-03-24] MEDS: ENTRESTO 49 MG-51 MG TABLET PO SCH (21:36)
[2020-03-24] MEDS: COREG 12.5 MG PO SCH (21:36)
[2020-03-24] MEDS: ZOCOR 20MG PO SCH (21:37)
[2020-03-24] MEDS ORDERED: NON-FORMULARY ITEM (Atorvastatin Calcium [Atorvastatin Calcium] 80 MG) PO SCH (22:00)
[2020-03-24] MEDS ORDERED: NON-FORMULARY ITEM (Sacubitril/Valsartan [Entresto 24 Mg-26 Mg Tablet] 1 TAB) PO SCH (22:00)
[2020-03-25] MEDS: Sodium Chloride 0.9% 1000 ML 1,000 ML IV SCH ×3 (01:52→23:57)
[2020-03-25] MEDS: Hydromorphone 1 mg/ml Injection IV PRN ×3 (01:58→16:35)
[2020-03-25 05:30] LABS: Hematocrit 43.2 % (42-50); Hemoglobin 13.8 gm/dl (12.5-18.0); Mean Cell Volume 96.4 fl (78-100); Mean Corpuscular Hemoglobin 30.8 pg (26-32); Mean Corpuscular Hgb Concent. 31.9 g/dl (32-36); Mean Platelet Volume 9.7 fl (7.5-11.0); Platelet Count 227 K/mm3 (150-450); Red Blood Count 4.48 M/mm3 (4.1-5.6); Red Cell Distribution Width 13.6 % (11.5-14.0); White Blood Count 16.1 K/mm3 (4.0-10.5)
[2020-03-25 05:43] LABS: ALBUMIN 3.5 g/dL (3.5-5.0); ALKALINE PHOSPHATASE 57 U/L (38-126); AMYLASE 529 U/L (30-110); ANION GAP 9.3 MEQ/L (5-15); BLOOD UREA NITROGEN 14 mg/dL (9-20); CHLORIDE 100 mmol/L (98-107); Calcium 8.6 mg/dL (8.4-10.2); Carbon Dioxide 27 mmol/L (22-30); Creatinine 1 0.85 mg/dL (0.66-1.25); EST GLOMERULAR FILTRATION RATE > 60.0 ML/MIN; Glucose 87 mg/dL (74-106); LIPASE 1571 U/L (23-300); Potassium 4.6 mmol/L (3.5-5.1); SGOT/AST 16 U/L (17-59); SGPT/ALT 13 U/L (0-50); SODIUM 132 mmol/L (137-145); Total Protein 6.3 g/dL (6.3-8.2)
[2020-03-25 08:11] LABS: BAND 3 % (0.0-2.0); Eosinophil 2 % (0.00-3.0); Lymphocytes 11 % (24-44); Monocyte 1 % (0.0-12.0); Neutrophils 83 % (36.-66.); Platelet Estimate NORMAL (NORMAL); Total Cells Counted 100
--- NOTE | 2020-03-25 08:55 | PCM.NOTE ---
Date and Time: 03/25/2049 Subjective Assessment: Pt not feeling well, very weak. c/o lower abd pain 8/10; denying epigastric pain. 4d since last BM. Says he urinates small amounts at a time. Has hx urinary hesitancy but states his prostate has been checked in the past. Output 80cc/hr for past 12h. Denies nausea; would like cranberry juice as he typically drinks it at home. - Review of Systems Constitutional: Weakness, No Fever Abdominal/Gastrointestinal: Abdominal Pain Objective Exam General Appearance: mild distress, alert Neurologic Exam: oriented x 3, cooperative Skin Exam: normal color, warm, dry, No rash Eye Exam: eyes nml inspection Ears, Nose, Throat Exam: moist mucous membranes Neck Exam: normal inspection Respiratory Exam: diminished breath sounds, No crackles/rales, No rhonchi, No wheezing Cardiovascular Exam: regular rate/rhythm, normal heart sounds, No murmur Gastrointestinal/Abdomen Exam: soft, normal bowel sounds, tenderness (epigastrum and RUQ), No mass, No guarding, No rebound Extremity Exam: No pedal edema, No swelling Back Exam: normal inspection, No rash OBJECTIVE DATA Vital Signs: Vital Signs - 24 hr Temp Pulse Resp BP Pulse Ox 03/25/20 07:00 98.1 F 72 18 111/62 95 03/25/20 03:00 97.7 F 67 18 92/54 91 L 03/24/20 23:00 99.2 F 75 20 109/59 91 L 03/24/20 19:00 97.6 F 73 20 124/59 95 03/24/20 15:54 97.5 F 68 18 113/61 94 L 03/24/20 14:00 97.5 F 70 18 138/72 96 03/24/20 12:25 98 03/24/20 10:17 96 H 16 128/72 97 Pain Assessment - Last Documented Pain Intensity 8 Pain Scale Used [facility] Intake and Output: Intake & Output 03/22/20 03/23/20 03/24/20 03/25/20 11:59 11:59 11:59 11:59 Intake Total 1300 Output Total 950 Balance 350 Weight 111.13 kg 117.1 kg Lab Results: Lab Results-Last 24 Hours 03/24/20 03/24/20 03/24/20 Range/Units 08:56 08:56 08:56 WBC 13.1 H (4.0-10.5) K/mm3 RBC 4.92 (4.1-5.6) M/mm3 Hgb 15.3 (12.5-18.0) gm/dl Hct 45.9 (42-50) % MCV 93.3 (78-100) fl MCH 31.1 (26-32) pg MCHC 33.3 (32-36) g/dl RDW 13.3 (11.5-14.0) % Plt Count 241 (150-450) K/mm3 MPV 9.4 (7.5-11.0) fl Gran % 80.2 H (36.0-66.0) % Eos # (Auto) 0.11 (0-0.5) Absolute Lymphs (auto) 1.60 (1.0-4.6) Absolute Monos (auto) 0.86 (0.0-1.3) Lymphocytes % 12.2 L (24.0-44.0) % Monocytes % 6.6 (0.0-12.0) % Eosinophils % 0.8 (0.00-5.0) % Basophils % 0.2 (0.0-0.4) % Absolute Granulocytes 10.51 H (1.4-6.9) Segmented Neutrophils (36.-66.) % Band Neutrophils (0.0-2.0) % Lymphocytes (Manual) (24-44) % Monocytes (Manual) (0.0-12.0) % Eosinophils (Manual) (0.00-3.0) % Basophils # 0.02 (0-0.4) Platelet Estimate (NORMAL) RBC Morphology Sodium 133 L (137-145) mmol/L Potassium 4.4 (3.5-5.1) mmol/L Chloride 100 (98-107) mmol/L Carbon Dioxide 26 (22-30) mmol/L Anion Gap 11.8 (5-15) MEQ/L BUN 15 (9-20) mg/dL Creatinine 0.65 L (0.66-1.25) mg/dL Estimated GFR > 60.0 ML/MIN Glucose 102 (74-106) mg/dL Calcium 9.2 (8.4-10.2) mg/dL Total Bilirubin 1.00 (0.2-1.3) mg/dL AST 18 (17-59) U/L ALT 17 (0-50) U/L Alkaline Phosphatase 71 (38-126) U/L Troponin I < 0.012 (0.000-0.034) ng/mL Serum Total Protein 6.6 (6.3-8.2) g/dL Albumin 4.0 (3.5-5.0) g/dL Amylase 1630 H (30-110) U/L Lipase 02299 H (23-300) U/L Urine Color (YELLOW) Urine Appearance (CLEAR) Urine pH (5-6) Ur Specific [place] (1.005-1.025) Urine Protein (Negative) Urine Ketones (NEGATIVE) Urine Blood (0-5) Monty/ul Urine Nitrite (NEGATIVE) Urine Bilirubin (NEGATIVE) Urine Urobilinogen (0-1) mg/dL Ur Leukocyte Esterase (NEGATIVE) Urine WBC (Auto) (0-5) /HPF Urine RBC (Auto) (0-2) /HPF U Epithel Cells (Auto) (FEW) /HPF Urine Bacteria (Auto) (NEGATIVE) /HPF Urine Mucus (Auto) (NEGATIVE) /HPF Urine Culture Reflexed (NO) Urine Glucose (NEGATIVE) mg/dL 03/24/20 03/24/20 03/24/20 Range/Units 12:16 12:16 15:34 WBC (4.0-10.5) K/mm3 RBC (4.1-5.6) M/mm3 Hgb (12.5-18.0) gm/dl Hct (42-50) % MCV (78-100) fl MCH (26-32) pg MCHC (32-36) g/dl RDW (11.5-14.0) % Plt Count (150-450) K/mm3 MPV (7.5-11.0) fl Gran % (36.0-66.0) % Eos # (Auto) (0-0.5) Absolute Lymphs (auto) (1.0-4.6) Absolute Monos (auto) (0.0-1.3) Lymphocytes % (24.0-44.0) % Monocytes % (0.0-12.0) % Eosinophils % (0.00-5.0) % Basophils % (0.0-0.4) % Absolute Granulocytes (1.4-6.9) Segmented Neutrophils (36.-66.) % Band Neutrophils (0.0-2.0) % Lymphocytes (Manual) (24-44) % Monocytes (Manual) (0.0-12.0) % Eosinophils (Manual) (0.00-3.0) % Basophils # (0-0.4) Platelet Estimate (NORMAL) RBC Morphology Sodium (137-145) mmol/L Potassium (3.5-5.1) mmol/L Chloride (98-107) mmol/L Carbon Dioxide (22-30) mmol/L Anion Gap (5-15) MEQ/L BUN (9-20) mg/dL Creatinine (0.66-1.25) mg/dL Estimated GFR ML/MIN Glucose (74-106) mg/dL Calcium (8.4-10.2) mg/dL Total Bilirubin (0.2-1.3) mg/dL AST (17-59) U/L ALT (0-50) U/L Alkaline Phosphatase (38-126) U/L Troponin I < 0.012 < 0.012 (0.000-0.034) ng/mL Serum Total Protein (6.3-8.2) g/dL Albumin (3.5-5.0) g/dL Amylase (30-110) U/L Lipase (23-300) U/L Urine Color YELLOW (YELLOW) Urine Appearance CLEAR (CLEAR) Urine pH 6.0 (5-6) Ur Specific [place] 1.033 (1.005-1.025) Urine Protein NEGATIVE (Negative) Urine Ketones NEGATIVE (NEGATIVE) Urine Blood NEGATIVE (0-5) Monty/ul Urine Nitrite NEGATIVE (NEGATIVE) Urine Bilirubin NEGATIVE (NEGATIVE) Urine Urobilinogen NEGATIVE (0-1) mg/dL Ur Leukocyte Esterase NEGATIVE (NEGATIVE) Urine WBC (Auto) NONE (0-5) /HPF Urine RBC (Auto) NONE (0-2) /HPF U Epithel Cells (Auto) NONE (FEW) /HPF Urine Bacteria (Auto) NONE (NEGATIVE) /HPF Urine Mucus (Auto) SLIGHT (NEGATIVE) /HPF Urine Culture Reflexed NO (NO) Urine Glucose NEGATIVE (NEGATIVE) mg/dL 03/25/20 03/25/20 Range/Units 04:50 04:56 WBC 16.1 H (4.0-10.5) K/mm3 RBC 4.48 (4.1-5.6) M/mm3 Hgb 13.8 (12.5-18.0) gm/dl Hct 43.2 (42-50) % MCV 96.4 (78-100) fl MCH 30.8 (26-32) pg MCHC 31.9 L (32-36) g/dl RDW 13.6 (11.5-14.0) % Plt Count 227 (150-450) K/mm3 MPV 9.7 (7.5-11.0) fl Gran % (36.0-66.0) % Eos # (Auto) (0-0.5) Absolute Lymphs (auto) (1.0-4.6) Absolute Monos (auto) (0.0-1.3) Lymphocytes % (24.0-44.0) % Monocytes % (0.0-12.0) % Eosinophils % (0.00-5.0) % Basophils % (0.0-0.4) % Absolute Granulocytes (1.4-6.9) Segmented Neutrophils 83 H (36.-66.) % Band Neutrophils 3 H (0.0-2.0) % Lymphocytes (Manual) 11 L (24-44) % Monocytes (Manual) 1 (0.0-12.0) % Eosinophils (Manual) 2 (0.00-3.0) % Basophils # (0-0.4) Platelet Estimate NORMAL (NORMAL) RBC Morphology NORMAL Sodium 132 L (137-145) mmol/L Potassium 4.6 (3.5-5.1) mmol/L Chloride 100 (98-107) mmol/L Carbon Dioxide 27 (22-30) mmol/L Anion Gap 9.3 (5-15) MEQ/L BUN 14 (9-20) mg/dL Creatinine 0.85 (0.66-1.25) mg/dL Estimated GFR > 60.0 ML/MIN Glucose 87 (74-106) mg/dL Calcium 8.6 (8.4-10.2) mg/dL Total Bilirubin 1.00 (0.2-1.3) mg/dL AST 16 L (17-59) U/L ALT 13 (0-50) U/L Alkaline Phosphatase 57 (38-126) U/L Troponin I (0.000-0.034) ng/mL Serum Total Protein 6.3 (6.3-8.2) g/dL Albumin 3.5 (3.5-5.0) g/dL Amylase 529 H (30-110) U/L Lipase 1571 H (23-300) U/L Urine Color (YELLOW) Urine Appearance (CLEAR) Urine pH (5-6) Ur Specific [place] (1.005-1.025) Urine Protein (Negative) Urine Ketones (NEGATIVE) Urine Blood (0-5) Monty/ul Urine Nitrite (NEGATIVE) Urine Bilirubin (NEGATIVE) Urine Urobilinogen (0-1) mg/dL Ur Leukocyte Esterase (NEGATIVE) Urine WBC (Auto) (0-5) /HPF Urine RBC (Auto) (0-2) /HPF U Epithel Cells (Auto) (FEW) /HPF Urine Bacteria (Auto) (NEGATIVE) /HPF Urine Mucus (Auto) (NEGATIVE) /HPF Urine Culture Reflexed (NO) Urine Glucose (NEGATIVE) mg/dL Radiology Exams: Radiology Procedures Category Date Time Status ABDOMEN AND PELVIS W CONTRAST [CT] Stat Exams 03/24/20 10:22 Completed US ABDOMEN LIMITED [ABDOMINAL-LIMITED] [US] Stat Exams 03/24/20 13:11 Completed Assessment/Plan (1) Constipation Current Visit: Yes Status: Acute Qualifiers: Constipation type: slow transit constipation Qualified Code(s): K59.01 - Slow transit constipation Assessment & Plan: add colace Code(s): K59.00 - CONSTIPATION, UNSPECIFIED (2) Urinary hesitancy Current Visit: Yes Status: Chronic Assessment & Plan: Checking PSA; PCP may want to consider doing SUZANNA if not done recently. Code(s): R39.11 - HESITANCY OF MICTURITION (3) Leukocytosis Current Visit: Yes Status: Acute Qualifiers: Leukocytosis type: other Qualified Code(s): D72.828 - Other elevated white blood cell count Assessment & Plan: WBC elevated today to 16; with pt not feeling well, will add antibiotic to cover intra-abdominal infection. Code(s): D72.829 - ELEVATED WHITE BLOOD CELL COUNT, UNSPECIFIED (4) Acute pancreatitis Current Visit: Yes Status: Acute Qualifiers: Pancreatitis type: unspecified pancreatitis type Acute pancreatitis complication: unspecified Qualified Code(s): K85.90 - Acute pancreatitis without necrosis or infection, unspecified Assessment & Plan: No necrosis noted on CT scan. Amylase/lipase much improved today, but he is not feeling much better. Adding antibiotics. Pt has never had pancreatitis before. With duodenal inflammation, would consider EGD/ERCP after discharge to work up cause of pancreatitis. Code(s): K85.90 - ACUTE PANCREATITIS WITHOUT NECROSIS OR INFECTION, UNSP (5) CHF (congestive heart failure) Current Visit: Yes Status: Chronic Code(s): I50.9 - HEART FAILURE, UNSPECIFIED
[2020-03-25] MEDS: Zosyn 3.375 GM Vial 3.375 GM in Sodium Chloride 100ML MINI-BAG PLUS 100 ML IV SCH ×3 (10:42→23:57)
[2020-03-25] MEDS: Aldactone 25 MG PO SCH (10:45)
[2020-03-25] MEDS: Cordarone 200 MG PO SCH (10:45)
[2020-03-25] MEDS: PLAVIX 75 MG Tablet PO SCH (10:45)
[2020-03-25] MEDS: ENTRESTO 49 MG-51 MG TABLET PO SCH ×2 (10:45→21:49)
[2020-03-25] MEDS: COREG 12.5 MG PO SCH ×2 (10:45→21:49)
[2020-03-25] MEDS: Flomax 0.4 MG PO SCH (10:46)
[2020-03-25] MEDS: ZOCOR 20MG PO SCH (21:49)
[2020-03-25] MEDS: Colace 100 MG PO PRN (21:50)
[2020-03-26 05:06] LABS: Hematocrit 39.6 % (42-50); Mean Cell Volume 95.7 fl (78-100); Mean Corpuscular Hemoglobin 31.4 pg (26-32); Mean Corpuscular Hgb Concent. 32.8 g/dl (32-36); Mean Platelet Volume 9.8 fl (7.5-11.0); Platelet Count 196 K/mm3 (150-450); Red Blood Count 4.14 M/mm3 (4.1-5.6); Red Cell Distribution Width 13.3 % (11.5-14.0); White Blood Count 15.6 K/mm3 (4.0-10.5)
[2020-03-26 05:23] LABS: ALBUMIN 3.2 g/dL (3.5-5.0); ALKALINE PHOSPHATASE 56 U/L (38-126); AMYLASE 144 U/L (30-110); ANION GAP 8.5 MEQ/L (5-15); BLOOD UREA NITROGEN 12 mg/dL (9-20); CHLORIDE 99 mmol/L (98-107); Calcium 8.1 mg/dL (8.4-10.2); Carbon Dioxide 26 mmol/L (22-30); Creatinine 1 0.68 mg/dL (0.66-1.25); EST GLOMERULAR FILTRATION RATE > 60.0 ML/MIN; Glucose 93 mg/dL (74-106); LIPASE 204 U/L (23-300); Potassium 3.9 mmol/L (3.5-5.1); SGOT/AST 18 U/L (17-59); SGPT/ALT 12 U/L (0-50); SODIUM 130 mmol/L (137-145)
[2020-03-26 05:38] LABS: Eosinophil 2 % (0.00-3.0); Lymphocytes 11 % (24-44); Monocyte 1 % (0.0-12.0); Neutrophils 86 % (36.-66.); Platelet Estimate NORMAL (NORMAL); Total Cells Counted 100; Toxic Granulation 1+
[2020-03-26] MEDS: Zosyn 3.375 GM Vial 3.375 GM in Sodium Chloride 100ML MINI-BAG PLUS 100 ML IV SCH ×3 (06:17→18:55)
--- NOTE | 2020-03-26 08:37 | XRAY ---
Indication: Urinary hesitancy. Two-dimensional ultrasound of the urinary bladder performed. Comparison: None Urinary bladder nominally distended with prevoid volume 132 cc. No focal bladder mass or wall thickening. Ureteral jets not visualized within the allotted exam time. Post void volume is 81 cc. Impression: Post void residual urine as detailed. Remaining urinary bladder sonogram is negative.
[2020-03-26] MEDS ORDERED: MAALOX ES 30 ML UNIT DOSE PO PRN (08:53)
--- NOTE | 2020-03-26 08:57 | PCM.NOTE ---
Date and Time: 03/26/20 0855 Subjective Assessment: patient c/o indigestion, no nausea or vomiting, tolerating liquids. pain is improved, feeling constipated but not able to move much due to IV pole etc Objective Exam General Appearance: no apparent distress, alert Neurologic Exam: alert, oriented x 3 Respiratory Exam: normal breath sounds, lungs clear, No respiratory distress Cardiovascular Exam: regular rate/rhythm, normal heart sounds Gastrointestinal/Abdomen Exam: soft, No tenderness, No distention, No mass, No guarding Extremity Exam: normal inspection, normal range of motion OBJECTIVE DATA Vital Signs: Vital Signs - 24 hr Temp Pulse Resp BP Pulse Ox 03/26/20 07:26 98.7 F 79 17 126/61 93 L 03/26/20 04:00 98.1 F 83 19 117/61 95 03/25/20 23:37 98.0 F 77 20 109/55 96 03/25/20 19:42 98.6 F 77 19 113/55 96 03/25/20 15:55 97.9 F 78 18 113/58 98 03/25/20 11:51 97.2 F 71 16 102/87 97 Pain Assessment - Last Documented Pain Intensity 8 Pain Scale Used [facility] Intake and Output: Intake & Output 03/23/20 03/24/20 03/25/20 03/26/20 11:59 11:59 11:59 11:59 Intake Total 1320 3856 Output Total 950 595 Balance 370 3261 Weight 111.13 kg 117.1 kg 120.1 kg Lab Results: Lab Results-Last 24 Hours 03/26/20 03/26/20 03/26/20 Range/Units 04:30 04:30 04:30 WBC 15.6 H (4.0-10.5) K/mm3 RBC 4.14 (4.1-5.6) M/mm3 Hgb 13.0 (12.5-18.0) gm/dl Hct 39.6 L (42-50) % MCV 95.7 (78-100) fl MCH 31.4 (26-32) pg MCHC 32.8 (32-36) g/dl RDW 13.3 (11.5-14.0) % Plt Count 196 (150-450) K/mm3 MPV 9.8 (7.5-11.0) fl Segmented Neutrophils 86 H (36.-66.) % Lymphocytes (Manual) 11 L (24-44) % Monocytes (Manual) 1 (0.0-12.0) % Eosinophils (Manual) 2 (0.00-3.0) % Toxic Granulation 1+ Platelet Estimate NORMAL (NORMAL) RBC Morphology NORMAL Sodium 130 L (137-145) mmol/L Potassium 3.9 (3.5-5.1) mmol/L Chloride 99 (98-107) mmol/L Carbon Dioxide 26 (22-30) mmol/L Anion Gap 8.5 (5-15) MEQ/L BUN 12 (9-20) mg/dL Creatinine 0.68 (0.66-1.25) mg/dL Estimated GFR > 60.0 ML/MIN Glucose 93 (74-106) mg/dL Calcium 8.1 L (8.4-10.2) mg/dL Total Bilirubin 1.10 (0.2-1.3) mg/dL AST 18 (17-59) U/L ALT 12 (0-50) U/L Alkaline Phosphatase 56 (38-126) U/L Serum Total Protein 6.0 L (6.3-8.2) g/dL Albumin 3.2 L (3.5-5.0) g/dL Triglycerides 68 (30-150) mg/dL Cholesterol 97 (50-200) mg/dL LDL Cholesterol 55 (30-100) mg/dL HDL Cholesterol 32 L (40-60) mg/dL Heart Disease Risk Ratio 3.0 Amylase 144 H (30-110) U/L Lipase 204 (23-300) U/L Radiology Exams: Radiology Procedures Category Date Time Status ABDOMEN AND PELVIS W CONTRAST [CT] Stat Exams 03/24/20 10:22 Completed BLADDER [US] Routine Exams 03/25/20 11:33 Completed CHEST 1 VIEW (PORTABLE) Routine Exams 03/26/20 08:52 Ordered US ABDOMEN LIMITED [ABDOMINAL-LIMITED] [US] Stat Exams 03/24/20 13:11 Completed Assessment/Plan (1) Acute pancreatitis Current Visit: Yes Status: Acute Qualifiers: Pancreatitis type: unspecified pancreatitis type Acute pancreatitis complication: unspecified Qualified Code(s): K85.90 - Acute pancreatitis without necrosis or infection, unspecified Assessment & Plan: d/c IV fluids, advance to bland diet, add pepcid and prn maalox Code(s): K85.90 - ACUTE PANCREATITIS WITHOUT NECROSIS OR INFECTION, UNSP (2) Leukocytosis Current Visit: Yes Status: Acute Qualifiers: Leukocytosis type: other Qualified Code(s): D72.828 - Other elevated white blood cell count Assessment & Plan: on zosyn, u/a clear and nothing infectious on abd ct. will get chest xray Code(s): D72.829 - ELEVATED WHITE BLOOD CELL COUNT, UNSPECIFIED (3) CHF (congestive heart failure) Current Visit: Yes Status: Chronic Code(s): I50.9 - HEART FAILURE, UNSPECIFIED (4) Constipation Current Visit: Yes Status: Acute Qualifiers: Constipation type: slow transit constipation Qualified Code(s): K59.01 - Slow transit constipation Code(s): K59.00 - CONSTIPATION, UNSPECIFIED
--- NOTE | 2020-03-26 09:50 | XRAY ---
Indication: Leukocytosis. Pancreatitis. Comparison: March 20, 2018. Portable chest demonstrates new right midlung subsegmental atelectasis/scarring. Remaining heart and lungs unremarkable again with a few incidental calcified granulomas. Bony thorax intact.
[2020-03-26] MEDS ORDERED: Pepcid 20 MG PO SCH (10:00)
[2020-03-26] MEDS: ECOTRIN 81 MG PO SCH (10:29)
[2020-03-26] MEDS: Flomax 0.4 MG PO SCH (10:29)
[2020-03-26] MEDS: Aldactone 25 MG PO SCH (10:29)
[2020-03-26] MEDS: PLAVIX 75 MG Tablet PO SCH (10:29)
[2020-03-26] MEDS: Cordarone 200 MG PO SCH (10:29)
[2020-03-26] MEDS: COREG 12.5 MG PO SCH ×2 (10:30→21:10)
[2020-03-26] MEDS: ENTRESTO 49 MG-51 MG TABLET PO SCH ×2 (10:30→21:11)
[2020-03-26] MEDS: Colace 100 MG PO PRN (10:30)
[2020-03-26] MEDS: ZOCOR 20MG PO SCH (21:12)
[2020-03-27] MEDS: Zosyn 3.375 GM Vial 3.375 GM in Sodium Chloride 100ML MINI-BAG PLUS 100 ML IV SCH ×2 (00:09→06:16)
[2020-03-27 05:21] LABS: Hematocrit 36.5 % (42-50); Mean Cell Volume 94.3 fl (78-100); Mean Corpuscular Hgb Concent. 32.9 g/dl (32-36); Mean Platelet Volume 9.6 fl (7.5-11.0); Platelet Count 202 K/mm3 (150-450); Red Blood Count 3.87 M/mm3 (4.1-5.6); Red Cell Distribution Width 12.9 % (11.5-14.0); White Blood Count 13.4 K/mm3 (4.0-10.5)
[2020-03-27 05:42] LABS: ALBUMIN 3.1 g/dL (3.5-5.0); ALKALINE PHOSPHATASE 58 U/L (38-126); AMYLASE 55 U/L (30-110); ANION GAP 8.9 MEQ/L (5-15); BLOOD UREA NITROGEN 11 mg/dL (9-20); CHLORIDE 99 mmol/L (98-107); Carbon Dioxide 24 mmol/L (22-30); Creatinine 1 0.57 mg/dL (0.66-1.25); EST GLOMERULAR FILTRATION RATE > 60.0 ML/MIN; Glucose 98 mg/dL (74-106); LIPASE 81 U/L (23-300); Potassium 3.8 mmol/L (3.5-5.1); SGOT/AST 18 U/L (17-59); SGPT/ALT 12 U/L (0-50); SODIUM 129 mmol/L (137-145)
[2020-03-27 06:02] LABS: Basophil 1 % (0.0-1.0); Eosinophil 2 % (0.00-3.0); Lymphocytes 3 % (24-44); Monocyte 2 % (0.0-12.0); Neutrophils 92 % (36.-66.); Platelet Estimate NORMAL (NORMAL); Total Cells Counted 100
[2020-03-27 07:42] VITALS: BP 130/68; PULSE 72; O2SAT 99
--- NOTE | 2020-03-27 08:16 | PCM.DS ---
Discharge Summary Date of Admission: 03/24/20 16:05 Admitting Physician: VINCENT SMITH Primary Care Provider: VINCENT SMITH Allergies Allergies No Known Drug Allergies Allergy (Verified 03/24/20 08:36) Hospital Summary - Hospital Course Hospital Course: patient was admitted with acute pancreatitis, had elevation of white count but no obvious infectious source identified. he was initially npo, pain has resolved. he is tolerating a bland diet and feeling much better, was on zosyn emperically, procalcitonin was elevated but again no sign of necrosis or infectious process on ct, u/a was clear and chest xray was negative. - Vitals & Intake/Output Vital Signs: Vital Signs Temperature 97.4 F 03/27/20 07:41 Pulse Rate 72 03/27/20 07:41 Respiratory Rate 17 03/27/20 07:41 Blood Pressure 130/68 03/27/20 07:41 O2 Sat by Pulse Oximetry 99 03/27/20 07:41 Intake & Output: Intake & Output 03/24/20 03/25/20 03/26/20 03/27/20 11:59 11:59 11:59 11:59 Intake Total 1320 3976 1959 Output Total 950 595 200 Balance 370 3381 1759 Weight 111.13 kg 117.1 kg 120.1 kg 119.5 kg - Lab Result Diagrams: 03/27/20 04:42 03/27/20 04:42 Lab Results-Last 24 Hrs: Lab Results-Last 24 Hours 03/25/20 03/27/20 03/27/20 Range/Units 05:26 04:42 04:42 WBC 13.4 H (4.0-10.5) K/mm3 RBC 3.87 L (4.1-5.6) M/mm3 Hgb 12.0 L (12.5-18.0) gm/dl Hct 36.5 L (42-50) % MCV 94.3 (78-100) fl MCH 31.0 (26-32) pg MCHC 32.9 (32-36) g/dl RDW 12.9 (11.5-14.0) % Plt Count 202 (150-450) K/mm3 MPV 9.6 (7.5-11.0) fl Segmented Neutrophils 92 H (36.-66.) % Lymphocytes (Manual) 3 L (24-44) % Monocytes (Manual) 2 (0.0-12.0) % Eosinophils (Manual) 2 (0.00-3.0) % Basophils (Manual) 1 (0.0-1.0) % Platelet Estimate NORMAL (NORMAL) RBC Morphology NORMAL Sodium 129 L (137-145) mmol/L Potassium 3.8 (3.5-5.1) mmol/L Chloride 99 (98-107) mmol/L Carbon Dioxide 24 (22-30) mmol/L Anion Gap 8.9 (5-15) MEQ/L BUN 11 (9-20) mg/dL Creatinine 0.57 L (0.66-1.25) mg/dL Estimated GFR > 60.0 ML/MIN Glucose 98 (74-106) mg/dL Calcium 8.0 L (8.4-10.2) mg/dL Total Bilirubin 0.90 (0.2-1.3) mg/dL AST 18 (17-59) U/L ALT 12 (0-50) U/L Alkaline Phosphatase 58 (38-126) U/L Serum Total Protein 6.0 L (6.3-8.2) g/dL Albumin 3.1 L (3.5-5.0) g/dL Amylase 55 (30-110) U/L Lipase 81 (23-300) U/L Prostate Specific Ag 0.2 (0.0-4.0) ng/mL Free PSA 0.07 (N/A) ng/mL % Free PSA 35.0 (.) % Procalcitonin (0.030-0.080) ng/mL 03/27/20 Range/Units 04:42 WBC (4.0-10.5) K/mm3 RBC (4.1-5.6) M/mm3 Hgb (12.5-18.0) gm/dl Hct (42-50) % MCV (78-100) fl MCH (26-32) pg MCHC (32-36) g/dl RDW (11.5-14.0) % Plt Count (150-450) K/mm3 MPV (7.5-11.0) fl Segmented Neutrophils (36.-66.) % Lymphocytes (Manual) (24-44) % Monocytes (Manual) (0.0-12.0) % Eosinophils (Manual) (0.00-3.0) % Basophils (Manual) (0.0-1.0) % Platelet Estimate (NORMAL) RBC Morphology Sodium (137-145) mmol/L Potassium (3.5-5.1) mmol/L Chloride (98-107) mmol/L Carbon Dioxide (22-30) mmol/L Anion Gap (5-15) MEQ/L BUN (9-20) mg/dL Creatinine (0.66-1.25) mg/dL Estimated GFR ML/MIN Glucose (74-106) mg/dL Calcium (8.4-10.2) mg/dL Total Bilirubin (0.2-1.3) mg/dL AST (17-59) U/L ALT (0-50) U/L Alkaline Phosphatase (38-126) U/L Serum Total Protein (6.3-8.2) g/dL Albumin (3.5-5.0) g/dL Amylase (30-110) U/L Lipase (23-300) U/L Prostate Specific Ag (0.0-4.0) ng/mL Free PSA (N/A) ng/mL % Free PSA (.) % Procalcitonin 0.136 H (0.030-0.080) ng/mL - Radiology Exams Ordered Rad Exams-Entire Visit: Radiology Procedures Category Date Time Status BLADDER [US] Routine Exams 03/25/20 11:33 Completed CHEST 1 VIEW (PORTABLE) Routine Exams 03/26/20 08:52 Completed Discharge Exam General Appearance: no apparent distress, alert Respiratory Exam: normal breath sounds, lungs clear, No respiratory distress Cardiovascular Exam: regular rate/rhythm, normal heart sounds Gastrointestinal/Abdomen Exam: soft, No tenderness, No mass Back Exam: normal inspection, normal range of motion, No CVA tenderness, No vertebral tenderness Extremity Exam: normal inspection, normal range of motion Final Diagnosis/Problem List - Final Discharge Diagnosis/Problem (1) Acute pancreatitis Current Visit: Yes Status: Acute Assessment & Plan: resolved, discussed bland/low fat diet with patient and Code(s): K85.90 - ACUTE PANCREATITIS WITHOUT NECROSIS OR INFECTION, UNSP (2) Leukocytosis Current Visit: Yes Status: Acute Assessment & Plan: no obvious source but with elevation of procalcitonin home on [facility] Code(s): D72.829 - ELEVATED WHITE BLOOD CELL COUNT, UNSPECIFIED (3) CHF (congestive heart failure) Current Visit: Yes Status: Chronic Code(s): I50.9 - HEART FAILURE, UNSPECIFIED (4) Constipation Current Visit: Yes Status: Acute Code(s): K59.00 - CONSTIPATION, UNSPECIFIED - Discharge Disposition: Home, Self-Care Condition: Stable Prescriptions: New Ciprofloxacin [Cipro 500 MG] 500 mg PO BID #14 tablet Tamsulosin HCl 0.4 mg [Flomax 0.4 MG] 0.4 mg PO DAILY #30 cap Continue Aspirin EC 81 mg [Ecotrin 81 mg] 81 mg PO UD Sacubitril/Valsartan [Entresto 24 mg-26 mg Tablet] 24 - 26 tab PO BID Furosemide 20 mg [Lasix 20 mg] 20 mg PO BIDPRN PRN PRN Reason: water retention Carvedilol 12.5 mg [Coreg 12.5 mg] 12.5 mg PO BID Amiodarone HCl 200 mg PO DAILY Spironolactone 25 mg PO DAILY Clopidogrel Bisulfate 75 mg [PLAVIX 75 MG Tablet] 75 mg PO DAILY Atorvastatin Calcium 80 mg PO HS Ascorbic Acid 500 mg [Vitamin C 500 MG] 500 mg PO DAILY Additional Instructions: follow a bland diet at home, no alcohol and avoid fatty/greasey foods. Follow up with: VINCENT SMITH MD [Primary Care Provider] - 1 Week
== END 2020-03-27 08:50 | disposition home or self-care (01) | DRG 440 ==
LOC: ED 08:18 → MED SURG 13:15 → OBSVTOIN 16:05
PROVIDERS: ADMIT Family Medicine; ATTEND Family Medicine
DX: K85.90 Acute pancreatitis without necrosis or infection, unspecified (principal); I10 Essential (primary) hypertension; D72.829 Elevated white blood cell count, unspecified; I50.9 Heart failure, unspecified; K59.00 Constipation, unspecified; J44.9 Chronic obstructive pulmonary disease, unspecified; R39.11 Hesitancy of micturition; E78.00 Pure hypercholesterolemia, unspecified; I25.2 Old myocardial infarction; Z86.79 Personal history of other diseases of the circulatory system; Z79.899 Other long term (current) drug therapy; Z79.01 Long term (current) use of anticoagulants
CPT/HCPCS: 36000; 36415; 71045; 74177; 76705; 80053; 80061; 81001; 82150; 83690; 83721; 84145; 84153; 84154; 84484; 85025; 93005; 96360; 96374; 96375; 99285; J1170; J2405; J3010; A9270-GY

== ENCOUNTER 2022-02-06 07:50 | Emergency (ER) | payer MEDICARE ==
--- NOTE | 2022-02-06 08:40 | ERPHSYRPT ---
- History of Present Illness Time Seen by Provider: 02/06/22 08:07 Source: patient Exam Limitations: no limitations Patient Subjective Stated Complaint: C/O right elbow pain and swelling that started this morning. Patient denies any fall or injuries to elbow. States he power washed his house for approx 3 hours yesterday and his right hand is his dominant hand. Triage Nursing Assessment: Patient alert and oriented. Right elbow is very swollen. No redness or warmth noted at this time. No breaks in skin noted; skin intact. Edema is hard, tender to touch or movement of elbow joint. Physician History: Patient here with right elbow pain and swelling. He most noticed this morning. Patient was power washing all day yesterday. Patient is on a blood thinner. He believes he is on Eliquis. Occurred: yesterday Method of Injury: other Quality: constant Severity of Pain-Max: none Severity of Pain-Current: none Allergies/Adverse Reactions: No Known Drug Allergies Allergy (Verified 02/06/22 07:57) Home Medications: Aspirin EC 81 mg [Ecotrin 81 mg] 81 mg PO UD 06/27/13 [History] Sacubitril/Valsartan [Entresto 24 mg-26 mg Tablet] 24 - 26 tab PO BID 06/11/16 [History] Amiodarone HCl 200 mg PO DAILY 02/04/17 [History] Atorvastatin Calcium 80 mg PO HS 02/04/17 [History] Carvedilol 12.5 mg [Coreg 12.5 mg] 12.5 mg PO BID 02/04/17 [History] Clopidogrel Bisulfate [PLAVIX Tablet] 75 mg PO DAILY 02/04/17 [History] Furosemide 20 mg [Lasix 20 mg] 20 mg PO BIDPRN PRN 02/04/17 [History] Spironolactone 25 mg PO DAILY 02/04/17 [History] Ascorbic Acid 500 mg [Vitamin C 500 MG] 500 mg PO DAILY 03/24/20 [History] Hx Tetanus, Diphtheria Vaccination/Date Given: Yes (not tetanus) Hx Influenza Vaccination/Date Given: No Hx Pneumococcal Vaccination/Date Given: No Immunizations Up to Date: Yes Travel Risk - International Travel Have you traveled outside of the country in past 3 weeks: No - Coronavirus Screening Are you exhibiting any of the following symptoms?: No Close contact with a COVID-19 positive Pt in past 14-21 Days: No - Vaccine Status Have you recieved a Covid-19 vaccination: Yes 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: [employer] - Vaccination Dates Date of 2cond Vaccination (if applicable): Didn't get it - Review of Systems Constitutional: No Fever, No Chills Eyes: No Symptoms Ears, Nose, & Throat: No Symptoms Respiratory: No Cough, No Dyspnea Cardiac: No Chest Pain, No Edema, No Syncope Abdominal/Gastrointestinal: No Abdominal Pain, No Nausea, No Vomiting, No Diarrhea Genitourinary Symptoms: No Dysuria Musculoskeletal: No Back Pain, No Neck Pain Skin: No Rash Neurological: No Dizziness, No Focal Weakness, No Sensory Changes Psychological: No Symptoms Endocrine: No Symptoms All Other Systems: Reviewed and Negative - Past Medical History Pertinent Past Medical History: Yes Neurological History: No Pertinent History ENT History: Cataracts Cardiac History: Arrhythmia, Coronary Artery Disease, High Cholesterol, Hypertension, Myocardial Infarction ([place]) Respiratory History: COPD Endocrine Medical History: No Pertinent History Musculoskeletal History: No Pertinent History GI Medical History: Pancreatitis History: No Pertinent History Psycho-Social History: No Pertinent History Male Reproductive Disorders: No Pertinent History Other Medical History: AFIB - Past Surgical History Past Surgical History: Yes Neuro Surgical History: No Pertinent History Cardiac: Cardiac Catheterization, Cardiac Stent, Internal Defibrillator, Pacemaker Respiratory: No Pertinent History Gastrointestinal: No Pertinent History Genitourinary: No Pertinent History Musculoskeletal: No Pertinent History Male Surgical History: No Pertinent History Other Surgical History: stents times 4 - Social History Smoking Status: Never smoker Exposure to second hand smoke: No Drug Use: none Patient Lives Alone: No - Nursing Vital Signs Nursing Vital Signs: Initial Vital Signs Temperature 97.6 F 02/06/22 07:58 Pulse Rate 80 02/06/22 07:58 Respiratory Rate 19 02/06/22 07:58 Blood Pressure 130/82 02/06/22 07:58 O2 Sat by Pulse Oximetry 98 02/06/22 07:58 Pain Scale Pain Intensity 4 - Physical Exam General Appearance: alert Eyes, Ears, Nose, Throat Exam: moist mucous membranes Neck Exam: non-tender, supple Cardiovascular/Respiratory Exam: chest non-tender, normal breath sounds, regular rate/rhythm, no respiratory distress Abdominal Exam: non-tender, No guarding Back Exam: normal inspection, No vertebral tenderness Elbow/Forearm Exam: swelling (Right elbow swelling over the olecranon process. Minimal tenderness. No redness, signs of infection. Limited range of motion secondary to effusion. Appears to be a bursitis. No obvious trauma. 2+ distal pulses, full range of motion at the wrist and otherwise normal exam.) Neuro/Tendon Exam: normal sensation, normal motor functions Mental Status Exam: alert, oriented x 3, cooperative Skin Exam: normal color, warm, dry SpO2: 98 - Course Nursing assessment & vital signs reviewed: Yes Ordered Tests: Active Orders 24 hr Category Date Time Status ELBOW (MINIMUM 3 VIEWS) Stat Exams 02/06/22 08:48 Taken - Progress Progress: improved Progress Note: 02/06/22 08:40 Plan for x-ray of the right elbow. Most likely is a bursitis. We will avoid any drainage as we do not want this to turn into a septic bursitis, abscess. Patient also on a blood thinner. Therefore, there may be a component of hematoma should he have bumped it. Again, we will wrap, x-ray, plan for close follow-up with PCP. 02/06/22 09:24 X-ray shows no obvious fracture. Close orthopedic follow-up. Plan for Mark wrap, discharged home. - Departure Departure Disposition: Home Clinical Impression: Olecranon bursitis, right elbow Condition: Stable Critical Care Time: No Referrals: VINCENT SMITH MD [Primary Care Provider] - Follow up/PCP as directed Instructions: Elbow Sprain (DC) Forms: Ortho Referral
[2022-02-06 09:19] VITALS: BP 120/68; PULSE 64
[2022-02-06 09:25] VITALS: O2SAT 98
--- NOTE | 2022-02-06 20:21 | XRAY ---
Indication: Posterior pain and swelling. Comparison: None 3 view right elbow demonstrates osteopenia and posterior soft tissue swelling. No other bony, articular, or soft tissue abnormalities
== END 2022-02-06 09:20 | disposition home or self-care (01) ==
LOC: ED 07:50
DX: M70.21 Olecranon bursitis, right elbow (principal); X50.9XXA Other and unspecified overexertion or strenuous movements or postures, initial encounter; Y93.H9 Activity, other involving exterior property and land maintenance, building and construction; Y92.017 Garden or yard in single-family (private) house as the place of occurrence of the external cause; M25.521 Pain in right elbow; E78.5 Hyperlipidemia, unspecified; I10 Essential (primary) hypertension; Z79.02 Long term (current) use of antithrombotics/antiplatelets; Z79.01 Long term (current) use of anticoagulants; Z79.899 Other long term (current) drug therapy; Z28.311 Partially vaccinated for COVID-19
CPT/HCPCS: 73080; 99283

== ENCOUNTER 2022-05-05 09:39 | Day surgery (SDC) | payer MEDICARE | END 2022-05-05 09:50 | disposition home or self-care (01) | LOC: SDC-PAIN 09:39 | PROVIDERS: ATTEND Psychiatry & Neurology Pain Medicine | DX: Z53.9 Procedure and treatment not carried out, unspecified reason (principal) ==

== ENCOUNTER 2022-05-12 09:07 | Day surgery (SDC) | payer MEDICARE ==
[2022-05-12] MEDS ORDERED: LIDOCAINE HCL 2% 100 MG/5 ML IJ ONE (09:08)
[2022-05-12] MEDS ORDERED: DIPRIVAN 200 MG/20 ML IV ONE (10:43)
--- NOTE | 2022-05-12 11:29 | XRAY ---
Indication: Bilateral L4-S1 MBB. Intraoperative fluoroscopy provided for 19 seconds. Single digital spot image submitted for interpretation demonstrates posterior needle tips projecting over the expected left and right L4-S1 nerve roots. Correlate with intraoperative findings/report.
[2022-05-12] MEDS ORDERED: Lactated Ringers 1,000 ML IV ONE (11:51)
--- NOTE | 2022-05-12 12:02 | XRAY ---
19 seconds of fluoroscopy was used in surgery for a bilateral L4-S1 MBB.
== END 2022-05-12 11:10 | disposition home or self-care (01) ==
LOC: SDC-PAIN 09:07
PROVIDERS: ATTEND Psychiatry & Neurology Pain Medicine
DX: M47.816 Spondylosis without myelopathy or radiculopathy, lumbar region (principal); Z79.899 Other long term (current) drug therapy
CPT/HCPCS: 64493; 64494; 72020; 77002; J2704

== ENCOUNTER 2022-07-07 10:57 | Day surgery (SDC) | payer MEDICARE ==
[2022-07-07] MEDS ORDERED: BUPIVACAINE 0.5% VIAL IJ ONE (10:58)
[2022-07-07] MEDS ORDERED: DIPRIVAN 200 MG/20 ML IV ONE (13:31)
--- NOTE | 2022-07-07 14:29 | XRAY ---
Indication: Bilateral L4-S1 MBB. Intraoperative fluoroscopy provided for 18 seconds. 2 digital spot images submitted for interpretation demonstrates posterior needle tips projecting over the expected left and right L4-S1 nerve roots. Correlate with intraoperative findings/report.
[2022-07-07] MEDS ORDERED: Lactated Ringers 1,000 ML IV ONE (14:34)
--- NOTE | 2022-07-07 15:14 | XRAY ---
18 seconds of fluoroscopy was used in surgery for a bilateral L4-S1 MBB.
== END 2022-07-07 14:00 | disposition home or self-care (01) ==
LOC: SDC-PAIN 10:57
PROVIDERS: ATTEND Psychiatry & Neurology Pain Medicine
DX: M47.816 Spondylosis without myelopathy or radiculopathy, lumbar region (principal)
CPT/HCPCS: 64493; 64494; 72020; 77002; J2704

== ENCOUNTER 2022-08-18 08:21 | Day surgery (SDC) | payer MEDICARE ==
[2022-08-18] MEDS ORDERED: LIDOCAINE HCL 1% 50 MG/5 ML VL PF IJ ONE (08:22)
[2022-08-18] MEDS ORDERED: BUPIVACAINE 0.5% VIAL IJ ONE (08:22)
[2022-08-18] MEDS ORDERED: Depo-Medrol 40 MG/ML IM ONE (08:22)
[2022-08-18] MEDS ORDERED: DIPRIVAN 200 MG/20 ML IV ONE (09:48)
--- NOTE | 2022-08-18 10:17 | XRAY ---
Indication: Right L4-S1 RFA Intraoperative fluoroscopy provided for 17 seconds. 3 digital spot image submitted for interpretation demonstrates posterior needle tips projecting over the expected right L4-S1 nerve roots. Correlate with intraoperative findings/report.
--- NOTE | 2022-08-18 11:36 | XRAY ---
17 seconds of fluoroscopy was used in surgery for a right L4-S1 RFA.
[2022-08-18] MEDS ORDERED: Lactated Ringers 1,000 ML IV ONE (13:54)
== END 2022-08-18 10:25 | disposition home or self-care (01) ==
LOC: SDC-PAIN 08:21
PROVIDERS: ATTEND Psychiatry & Neurology Pain Medicine
DX: M47.816 Spondylosis without myelopathy or radiculopathy, lumbar region (principal); Z79.899 Other long term (current) drug therapy
CPT/HCPCS: 64635; 64636; 72100; 77002; 99100; J1030; J2001; J2704

== ENCOUNTER 2022-09-01 10:50 | Day surgery (SDC) | payer MEDICARE ==
[2022-09-01] MEDS ORDERED: LIDOCAINE HCL 1% 50 MG/5 ML VL PF IJ ONE (10:51)
[2022-09-01] MEDS ORDERED: BUPIVACAINE 0.5% VIAL IJ ONE (10:51)
[2022-09-01] MEDS ORDERED: Depo-Medrol 40 MG/ML IM ONE (10:51)
[2022-09-01] MEDS ORDERED: DIPRIVAN 200 MG/20 ML IV ONE (12:37)
[2022-09-01] MEDS ORDERED: Lactated Ringers 1,000 ML IV ONE (13:56)
--- NOTE | 2022-09-01 14:10 | XRAY ---
Indication: Left L4-S1 RFA. Intraoperative fluoroscopy provided for 21 seconds. 3 digital spot image submitted for interpretation demonstrates posterior needle tips projecting over the expected left L4-S1 nerve roots. Correlate with intraoperative findings/report.
--- NOTE | 2022-09-01 14:14 | XRAY ---
21 seconds of fluoroscopy was used in surgery for a left L4-S1 RFA.
== END 2022-09-01 13:10 | disposition home or self-care (01) ==
LOC: SDC-PAIN 10:50
PROVIDERS: ATTEND Psychiatry & Neurology Pain Medicine
DX: M47.816 Spondylosis without myelopathy or radiculopathy, lumbar region (principal); Z79.899 Other long term (current) drug therapy
CPT/HCPCS: 64635; 64636; 72100; 77002; 99100; J1030; J2001; J2704

== ENCOUNTER 2024-06-01 09:23 | Emergency (ER) | payer MEDICARE ==
--- NOTE | 2024-06-01 09:28 | ERPHSYRPT ---
- History of Present Illness Time Seen by Provider: 06/01/24 09:28 Source: patient, EMS Physician History: This is an 83-year-old white male patient of Dr. Smith who was bringing in groceries and tripped on the step into the front door and fell backwards from a standing position hitting his head in the left occipital region. There is an abrasion in this area no laceration. Patient denies loss of consciousness. His primary complaint is tenderness of the scalp in the area of the abrasion and low back pain. The patient denies chest pain. Patient denies shortness of breath. Patient denies abdominal pain. Patient denies nausea and vomiting symptoms. He has no visual changes. Patient does have history of being on Eliquis. He has a history of coronary disease with 4 cardiac stents and has an internal defibrillator/pacemaker. He has a history of gastroesophageal reflux disease, hyperlipidemia, atrial fibrillation, CHF and hypertension. He has no pain in his extremities. Occurred: just prior to arrival Reason for Fall: tripped, fell from standing pos Injuries/Pain Location: head Loss of Consciousness: no loss of consciousness Quality: aching Severity of Pain-Max: mild Severity of Pain-Current: mild Modifying Factors: Improves With: movement (Lower back pain) Associated Symptoms (Fall): back pain, No confusion, No chest pain, No extremity injury (Low back pain), No shortness of breath Allergies/Adverse Reactions: No Known Drug Allergies Allergy (Verified 06/01/24 09:34) Home Medications: Sacubitril/Valsartan [Entresto 24 mg-26 mg Tablet] 24 - 26 tab PO BID 06/11/16 [History] Amiodarone HCl 200 mg PO DAILY 02/04/17 [History] Atorvastatin Calcium 80 mg PO HS 02/04/17 [History] Carvedilol 12.5 mg [Coreg 12.5 mg] 12.5 mg PO BID 02/04/17 [History] Clopidogrel Bisulfate [PLAVIX Tablet] 75 mg PO DAILY 02/04/17 [History] Spironolactone 25 mg PO DAILY PRN 02/04/17 [History] Ascorbic Acid 500 mg [Vitamin C 500 MG] 500 mg PO DAILY 03/24/20 [History] Apixaban [Eliquis] 5 mg PO BID 06/01/24 [History] Omeprazole 20 mg PO DAILY 06/01/24 [History] Trazodone HCl 50 mg [Desyrel 50 mg] 50 mg PO DAILY 06/01/24 [History] Hx Tetanus, Diphtheria Vaccination/Date Given: Yes (not tetanus) Hx Influenza Vaccination/Date Given: No Hx Pneumococcal Vaccination/Date Given: No Travel Risk - International Travel Have you traveled outside of the country in past 3 weeks: No - Emerging Infectious Disease Are you exhibiting symptoms associated with any current EIDs: No - Review of Systems Constitutional: No Symptoms Eyes: No Symptoms Ears, Nose, & Throat: No Symptoms Respiratory: No Symptoms Cardiac: No Symptoms Abdominal/Gastrointestinal: No Symptoms Genitourinary Symptoms: No Symptoms Musculoskeletal: Back Pain (Low back pain), Fall Skin: Other (Abrasion left occipital region) Neurological: No Symptoms Psychological: No Symptoms Endocrine: No Symptoms Hematologic/Lymphatic: No Symptoms Immunological/Allergic: No Symptoms All Other Systems: Reviewed and Negative - Past Medical History Pertinent Past Medical History: Yes Neurological History: No Pertinent History ENT History: Cataracts Cardiac History: Arrhythmia, Coronary Artery Disease, High Cholesterol, Hypertension, Myocardial Infarction ([place]) Respiratory History: COPD Endocrine Medical History: No Pertinent History Musculoskeletal History: No Pertinent History GI Medical History: Pancreatitis History: No Pertinent History Psycho-Social History: No Pertinent History Male Reproductive Disorders: No Pertinent History Other Medical History: AFIB - Past Surgical History Past Surgical History: Yes Neuro Surgical History: No Pertinent History Cardiac: Cardiac Catheterization, Cardiac Stent, Internal Defibrillator, Pacemaker Respiratory: No Pertinent History Gastrointestinal: No Pertinent History Genitourinary: No Pertinent History Musculoskeletal: No Pertinent History Male Surgical History: No Pertinent History Other Surgical History: stents times 4 - Social History Smoking Status: Never smoker Exposure to second hand smoke: No Drug Use: none Patient Lives Alone: No - Nursing Vital Signs Nursing Vital Signs: Initial Vital Signs Temperature 97.2 F 06/01/24 09:25 Pulse Rate 83 06/01/24 09:25 Blood Pressure 129/77 06/01/24 09:25 O2 Sat by Pulse Oximetry 97 06/01/24 09:25 Pain Scale Pain Intensity 5 - [place] Coma Score Best Eye Response ([place]): (4) open spontaneously Best Verbal Response ([place]): (5) oriented Best Motor Response ([place]): (6) obeys commands [place] Total: 15 - Physical Exam General Appearance: no apparent distress, alert, obese Head Injury: tenderness (In the area of the left occipital region skin abrasion) Eye Exam: PERRL/EOMI, eyes nml inspection ENT Exam: airway nml, nml ext.inspection, No evidence of ENT injury Neck Exam: supple, trachea midline, full range of motion, normal alignment, normal inspection Respiratory/Chest Exam: normal breath sounds, No chest tenderness, No respiratory distress, No ecchymosis, No crepitus Cardiovascular Exam: normal heart sounds, regular rate/rhythm Gastrointestinal Exam: soft, normal bowel sounds, No tenderness Rectal Exam: not done Back Exam: normal inspection, normal range of motion, vertebral tenderness (Lumbar level tenderness to palpation), other (No drop-off sign), No CVA tenderness Extremity Exam: normal inspection, normal range of motion, capillary refill <3 sec, pelvis stable, No deformities Neurologic Exam: alert, oriented x 3, 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, 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, sensation nml Skin Exam: abrasion (Skin/scalp abrasion left occipital region) SpO2 Interpretation: normal O2 Delivery: Room Air - Course Nursing assessment & vital signs reviewed: Yes Ordered Tests: Active Orders 24 hr Category Date Time Status CERVICAL SPINE WO CONTRAST [CT] Stat Exams 06/01/24 09:32 Completed HEAD WITHOUT CONTRAST [CT] Stat Exams 06/01/24 09:32 Completed LUMBAR SPINE W/O [CT] Stat Exams 06/01/24 09:32 Completed - Progress Progress: improved, pain not gone completely Progress Note: 06/01/24 09:58 My medical decision making of the assignment of low to moderate complexity of this patient's medical issue today is based on review of the patient's past medical history, review of the patient's medication list, reviewed patient drug allergy list, history present illness and physical findings on examination. The workup in the patient includes CT scan of the head, cervical spine and lumbar spine all without contrast. Differential diagnosis includes but is not limited to fracture/subluxation of spine, acute intracranial abnormality, acute cranial abnormality 06/01/24 11:[address] scans were interpreted by the radiologist and all were without contrast: CT scan of the head shows stable, nonacute senile brain. CT scan of the cervical spine shows multilevel degenerative spondylosis. There is no evidence of acute fracture or subluxation. CT scan of the lumbar spine shows degenerative disc disease L4-S1. There is no acute fracture or subluxation. Counseled pt/family regarding: diagnosis, need for follow-up, rad results Medical Desision Making - Independent Historian Additional History obtained from: Spouse - Diagnostic Testing Diagnostic test were ordered, analyzed, and reviewed by me: Yes Radiological Interpretation: Reviewed by me, Teleradiologist Report - Risk of complications Low Risk: Low risk of morbidity from additional dx testing or treatment - Departure Departure Disposition: Home Clinical Impression: Scalp abrasion, Fall with no significant injury Condition: Stable Critical Care Time: No Referrals: VINCENT SMITH MD [Primary Care Provider] - Follow up/PCP as directed Additional Instructions: Keep the scalp abrasion clean daily with soap and water and may apply thin layer of antibiotic ointment of choice each day. Use Tylenol for pain control. Call your primary care provider today, 06/01/2024, to make arrangements for follow-up appointment for reassessment in 3 to 5 days.
[2024-06-01 09:34] VITALS: TEMP 97.2
--- NOTE | 2024-06-01 11:02 | XRAY ---
Indication: Status post fall. Multiple contiguous axial images obtained through the head without contrast. Comparison: September 13, 2023 Stable age-appropriate global atrophy and minimal periventricular degenerative micro-ischemia. No acute intracranial hemorrhage, abnormal extra-axial fluid collection, or mass effect. Fourth ventricle is midline without hydrocephalus. Bony calvarium intact. Visualized paranasal sinuses and mastoid air cells are clear. Impression: Stable nonacute senile brain.
[2024-06-01 11:07] VITALS: PULSE 72
--- NOTE | 2024-06-01 11:11 | XRAY ---
Indication: Status post fall. Multiple contiguous axial images obtained through cervical spine. Sagittal and coronal reformatted images obtained. Comparison: Cervical radiograph September 16, 2023. Osseous structures remain demineralized. Axial images negative for acute fracture, suspicious bony lesions, or spinal canal stenosis. Mild C5-C7 degenerative disc osteophyte complex. Sagittal and coronal reformatted images demonstrates normal cervical lordosis and mild levoscoliosis. Mild/moderate multilevel bilateral degenerative facet hypertrophy and C5-C7 degenerative disc space narrowing. No acute compression fracture, subluxation, or jumped facet. Normal-appearing craniocervical junction. Visualized noncontrasted soft tissues demonstrate mild bilateral carotid calcifications. Lung apices clear. Impression: 1. Continued negative acute fracture/subluxation. 2. Chronic findings including osteopenia, multilevel degenerative spondylosis, levoscoliosis, and bilateral carotid calcifications.
--- NOTE | 2024-06-01 11:25 | XRAY ---
Indication: Status post fall. Multiple contiguous axial images obtained through lumbar spine. Sagittal and coronal reformatted images obtained. Comparison: February 23, 2022 Osseous structures remain demineralized. Grossly stable mild broad-based disc bulge at L4-S1 levels with degenerative vacuum disc phenomena. Also stable mild bilateral L4-S1 degenerative facet hypertrophy. No acute fracture, suspicious bony lesions, or spinal canal stenosis. SI joints bilaterally symmetric. Sagittal and coronal reformatted images again demonstrates normal alignment/lordosis. No acute compression fracture or subluxation. Stable L4-S1 disc space narrowing. Visualized noncontrasted soft tissues again demonstrates moderate scattered aortoiliac calcifications. Impression: 1. Continued negative acute fracture/subluxation. 2. Chronic findings including osteopenia, L4-S1 degenerative disc disease, and arteriosclerotic disease.
[2024-06-01 11:42] VITALS: BP 113/65; O2SAT 99
== END 2024-06-01 11:46 | disposition home or self-care (01) ==
LOC: ED 09:23
DX: S00.01XA Abrasion of scalp, initial encounter (principal); M54.50 Low back pain, unspecified; R51.9 Headache, unspecified; W01.198A Fall on same level from slipping, tripping and stumbling with subsequent striking against other object, initial encounter; Z79.899 Other long term (current) drug therapy; Z79.01 Long term (current) use of anticoagulants
CPT/HCPCS: 70450; 72125; 72131; 99283; 99284

== ENCOUNTER 2024-07-18 12:42 | Day surgery (SDC) | payer MEDICARE ==
[2024-07-18] MEDS ORDERED: dexAMETHasone sodium phosphate IJ ONE (12:43)
[2024-07-18] MEDS ORDERED: LIDOCAINE HCL 2% 100 MG/5 ML IJ ONE (12:43)
[2024-07-18] MEDS ORDERED: Pepcid 20 MG VIAL IV ONE (13:41)
[2024-07-18] MEDS ORDERED: Reglan 10 MG/2 ML ONE (13:42)
[2024-07-18] MEDS ORDERED: Lactated Ringers 500 ML IV ONE (13:42)
[2024-07-18] MEDS ORDERED: propofoL IV ONE (14:43)
--- NOTE | 2024-07-18 16:29 | XRAY ---
Indication: Right C2-C4 MBB. Intraoperative fluoroscopy provided for 15 seconds. 2 digital spot image submitted for interpretation demonstrates posterior needle tips projecting over expected right C2-C4 nerve roots. Correlate with intraoperative findings/report.
--- NOTE | 2024-07-18 16:38 | XRAY ---
15 seconds of fluoroscopy was used in surgery for a right C2-C4 MBB.
== END 2024-07-18 15:20 | disposition home or self-care (01) ==
LOC: SDC-PAIN 12:42
PROVIDERS: ATTEND Psychiatry & Neurology Pain Medicine
DX: M47.812 Spondylosis without myelopathy or radiculopathy, cervical region (principal)
CPT/HCPCS: 64490; 64491; 72040; 77002; J1100; J2704